=== PATIENT | male | born 1945 | race Caucasian/White ===

== ENCOUNTER 2017-07-23 18:18 | Emergency (ER) | payer OTHER, MEDICARE ==
[2017-07-23 19:03] VITALS: BP 0/0
--- NOTE | 2017-07-23 19:24 | UC ---
Shortness of Breath HPI - HPI Summary HPI Summary: 71 yo WM h/o hypothyroidism c/o increased cough with sputum and general unwellness x 3 days. Denies f/c or SOB currently but nurse reported O2 sat of 89 % in triage - History of Current Complaint Chief Complaint: UCGeneralIllness Stated Complaint: SORE THROAT Hx Obtained From: Patient Onset/Duration: Lasting Days Current Severity: Moderate Alleviating Factors: Nothing Associated Signs & Symptoms: Positive: Cough (Productive) - Allergy/Home Medications Allergies/Adverse Reactions: Allergies Allergy/AdvReac Type Severity Reaction Status Date / Time hydroxyurea Allergy See Comment Verified 07/23/17 18:44 MS Hydroxyurea [From Hydrea] Allergy See Comment Verified 07/23/17 18:44 Home Medications: Home Medications DOXYcycline CAP(*) [DOXYcycline 100MG CAP(*)] 100 mg PO BID 07/23/17 [History Confirmed 07/23/17] Omeprazole CAP* [Prilosec CAP* 20 MG] 20 mg PO DAILY 07/23/17 [History Confirmed 07/23/17] Pseudoephedrine HCL ER TAB* [Sudafed 12 Hour*] 120 mg PO BID 07/23/17 [History Confirmed 07/23/17] PMH/Surg Hx/FS Hx/Imm Hx Other History Of: Hepatitis C - Surgical History Surgical History: Yes Surgery Procedure, Year, and Place: R knee x 3. hernia repairs x 3. sinus x2. THYROIDECTOMY - Family History Known Family History: Positive: Cardiac Disease, Hypertension - Social History Alcohol Use: Occasionally Substance Use Type: None Smoking Status (MU): Never Smoked Tobacco Have You Smoked in the Last Year: No - Immunization History Most Recent Influenza Vaccination: FALL 2013 Most Recent Tetanus Shot: current Most Recent Pneumonia Vaccination: current Review of Systems Skin: Negative Eyes: Negative ENT: Negative Respiratory: Cough - with yellow green sputum Cardiovascular: Negative Gastrointestinal: Negative Genitourinary: Negative Motor: Negative Neurovascular: Negative Musculoskeletal: Negative Neurological: Negative Psychological: Negative All Other Systems Reviewed And Are Negative: Yes Physical Exam Triage Information Reviewed: Yes Appearance: Ill-Appearing Vital Signs: Initial Vital Signs Temp 37.4 C 07/23/17 18:48 Pulse 67 07/23/17 18:48 Resp 22 07/23/17 18:48 BP 136/91 07/23/17 18:48 Pulse Ox 89 07/23/17 18:48 Eye Exam: Normal ENT Exam: Normal Dental Exam: Normal Neck exam: Normal Neck: Positive: 1 Respiratory: Positive: Rhonchi - diffuse- O2 sat goes up increases with deep inspiration. Negative: No respiratory distress, No accessory muscle use, Stridor, Wheezing Cardiovascular Exam: Normal Cardiovascular: Positive: RRR Abdominal Exam: Normal Musculoskeletal Exam: Normal Neurological Exam: Normal Psychological Exam: Normal Skin Exam: Normal Shortness of Breath Dx - Course Course Of Treatment: Pt's O2 sat improves with deep inspiration, Pt sent to ED to w/u for PNA and monitor for hypoxia, IV abx if necessary. Refused ambulance, his to drive pt to ED - Differential Dx/Diagnosis Provider Diagnoses: hypoxia. bronchitis Discharge - Discharge Plan Condition: Stable Disposition: TRANS HIGHER LVL OF CARE FAC Patient Education Materials: Hypoxia (ED), Pneumonia (ED) Referrals: Olivier Garcia MD [Primary Care Provider] - Additional Instructions: Please go to ER [facility]
== END 2017-07-23 19:27 | disposition short-term general hospital (02) ==
LOC: UCEAST 18:18
DX: J40 Bronchitis, not specified as acute or chronic (principal); R09.02 Hypoxemia; Z86.19 Personal history of other infectious and parasitic diseases; Z88.8 Allergy status to other drugs, medicaments and biological substances
CPT/HCPCS: 99212; G0463

== ENCOUNTER 2017-07-23 19:36 | Emergency (ER) | payer MEDICARE, OTHER ==
[2017-07-23] MEDS ORDERED: Ketorolac INJ* 15 MG/ML 1 ML VIAL IV PUSH ONE (20:29)
[2017-07-23] MEDS ORDERED: Albuterol 2.5 MG/3 ML NEB.SOL* (0.083%) INH ONE (20:30)
[2017-07-23] MEDS ORDERED: Albuterol/Ipratropium NEB.SOL* Albuterol 2.5 MG/Ipratropium 0.5 MG 3 ML INH ONE (20:30)
[2017-07-23] MEDS ORDERED: NS 0.9% 1000 ML* 1,000 ML IV ONE (20:31)
--- NOTE | 2017-07-23 21:11 | RAD ---
HISTORY: Cough COMPARISONS: December 22, 2014 VIEWS: 1: frontal portable view of the chest at 9:05 PM FINDINGS: LINES AND TUBES: None. CARDIOMEDIASTINAL SILHOUETTE: The cardiomediastinal silhouette is normal for portable technique. PLEURA: The costophrenic angles are sharp. No pleural abnormalities are noted. LUNG PARENCHYMA: There is patchy alveolar opacification of the left lung base. ABDOMEN: The upper abdomen is clear. There is no subphrenic gas. BONES AND SOFT TISSUES: No bone or soft tissue abnormalities are noted. IMPRESSION: PATCHY LEFT BASILAR ATELECTASIS VERSUS CONSOLIDATION.
[2017-07-23 21:12] LABS: INR 1.16 (0.77-1.02)
[2017-07-23] MEDS ORDERED: Levofloxacin 750 MG IVPREMIX(* 750 MG/150 ML BAG IVPB ONE (21:15)
[2017-07-23 21:19] LABS: Hematocrit 40 % (42-52); Hemoglobin 13.4 g/dl (14.0-18.0); Mean Corpuscular HGB Conc 33 g/dl (31-36); Mean Corpuscular Hemoglobin 27 pg (27-31); Mean Corpuscular Volume 80 fL (80-94); Mean Platelet Volume 8 um3 (7.4-10.4); Platelet Count 502 10^3/ul (150-450); Red Blood Count 4.99 10^6/ul (4.0-5.4); Red Cell Distribution Width 17 % (10.5-15); White Blood Count 7.5 10^3/ul (3.5-10.8)
[2017-07-23 21:21] LABS: EGFR Non-African American 73.2 (>60)
[2017-07-23 21:40] LABS: ABS Basophils 0.1 10^3/ul (0-0.2); ABS Eosinophils 0.1 10^3/ul (0-0.6); ABS Lymphocytes 2.7 10^3/ul (1.0-4.8); ABS Monocytes 0.4 10^3/ul (0-0.8); ABS Neutrophils 4.1 10^3/ul (1.5-7.7); ABS Nucleated RBC 0.1 10^3/ul; Eosinophil % 1.6 % (0-6); Lymphocyte % 36.4 % (25-47); Nucleated Red Blood Cells % 0.8
--- NOTE | 2017-07-23 22:27 | ED ---
Juana Cerna Julia, scribed for Francisco Shanks MD on 07/23/17 at 203 . HPI Chest Pain - HPI Summary HPI Summary: This patient is a 71 year old M presenting to [facility] with a chief complaint of chest wall pain with cough for the past two days. Patient reports fatigue, sinus headache, and productive cough with yellow phlegm for the past four days. Patient denies SOB. The patient rates the pain 5/10 in severity. Patient has a chronic history of sinusitis, and has been taking Doxycycline for the past four days. Dr. Garcia is his primary care physician - History of Current Complaint Chief Complaint: EDChestWallPain Time Seen by Provider: 07/23/17 20:21 Hx Obtained From: Patient Onset/Duration: Started Days Ago Timing: Constant Pain Intensity: 5 Pain Scale Used: 0-10 Numeric Chest Pain Location: Diffuse Character: Cough, Productive Aggravating Factor(s): Other: - cough Associated Signs and Symptoms: Positive: Productive Cough, Sinus Discomfrot, Other: - fatigue. Negative: Shortness of Breath - Allergy/Home Medications Allergies/Adverse Reactions: Allergies Allergy/AdvReac Type Severity Reaction Status Date / Time hydroxyurea Allergy See Comment Verified 07/23/17 18:44 MS Hydroxyurea [From Hydrea] Allergy See Comment Verified 07/23/17 18:44 PMH/Surg Hx/FS Hx/Imm Hx Endocrine/Hematology History: Reports: Hx Blood Disorders - high platelets, Hx Thyroid Disease - THYROIDECTOMY MAY 2013 Denies: Hx Diabetes Cardiovascular History: Reports: Hx Hypercholesterolemia - borderline Respiratory History: Reports: Hx Asthma - hypo, Other Respiratory Problems/ Disorders - sinusitis Denies: Hx Chronic Obstructive Pulmonary Disease (COPD) GI History: Reports: Hx Gastroesophageal Reflux Disease Sensory History: Reports: Hx Contacts or Glasses Opthamlomology History: Reports: Hx Contacts or Glasses - Cancer History Cancer Type, Location and Year: thyroid CA - Surgical History Surgery Procedure, Year, and Place: R knee x 3. hernia repairs x 3. sinus x2. THYROIDECTOMY Hx Anesthesia Reactions: No - Immunization History Date of Tetanus Vaccine: 2013 Date of Influenza Vaccine: Fall 2013 Infectious Disease History: Yes Infectious Disease History: Reports: Hx Hepatitis - 1955 hep C, Hx Shingles Denies: Hx Clostridium Difficile, Hx Human Immunodeficiency Virus (HIV), Hx of Known/Suspected MRSA, Hx Tuberculosis, Hx Known/Suspected VRE, Hx Known/ Suspected VRSA, History Other Infectious Disease, Traveled Outside the [place] in Last 30 Days - Family History Known Family History: Positive: Cardiac Disease, Hypertension - Social History Alcohol Use: Occasionally Substance Use Type: Reports: None Smoking Status (MU): Never Smoked Tobacco Have You Smoked in the Last Year: No Review of Systems Positive: Fatigue Positive: Chest Pain Positive: Cough - productive. Negative: Shortness Of Breath Positive: Headache - sinus headache All Other Systems Reviewed And Are Negative: Yes Physical Exam - Summary Physical Exam Summary: VITAL SIGNS: Reviewed. GENERAL: Patient is a well-developed and nourished male who is lying comfortable in the stretcher. Patient is not in any acute respiratory distress. HEAD AND FACE: No signs of trauma. No ecchymosis, hematomas or skull depressions. No sinus tenderness. EYES: PERRLA, EOMI x 2, No injected conjunctiva, no nystagmus. EARS: Hearing grossly intact. Ear canals and tympanic membranes are within normal limits. MOUTH: Oropharynx within normal limits. NECK: Supple, trachea is midline, no adenopathy, no JVD, no carotid bruit, no c- spine tenderness, neck with full ROM. CHEST: Symmetric, no tenderness at palpation LUNGS: Clear to auscultation bilaterally. No wheezing or crackles. Decreased breath sounds bilaterally. CVS: Regular rate and rhythm, S1 and S2 present, no murmurs or gallops appreciated. ABDOMEN: Soft, non-tender. No signs of distention. No rebound no guarding, and no masses palpated. Bowel sounds are normal. EXTREMITIES: FROM in all major joints, no edema, no cyanosis or clubbing. NEURO: Alert and oriented x 3. No acute neurological deficits. Speech is normal and follows commands. SKIN: Dry and warm Triage Information Reviewed: Yes Vital Signs On Initial Exam: Initial Vitals Temp Pulse Resp BP Pulse Ox 99.1 F 72 20 158/66 94 07/23/17 19:38 07/23/17 19:38 07/23/17 19:38 07/23/17 19:38 07/23/17 19:38 Vital Signs Reviewed: Yes Diagnostics - Vital Signs Vital Signs Temp Pulse Resp BP Pulse Ox 07/23/17 20:07 66 144/75 96 07/23/17 20:04 68 93 07/23/17 19:38 99.1 F 72 20 158/66 94 - Laboratory Result Diagrams: 07/23/17 20:55 07/23/17 20:55 Lab Statement: Any lab studies that have been ordered have been reviewed, and results considered in the medical decision making process. - Radiology CXR Radiology Interpretation Completed By: Radiologist - PATCHY LEFT BASILAR ATELECTASIS VERSUS CONSOLIDATION. ED Physician has reviewed this report. - EKG 2045 Cardiac Rate: NL - at66 BPM EKG Rhythm: Sinus Rhythm EKG Interpretation: Normal axis. Normal interval. No ischemic changes Re-Evaluation - Re-Evaluation 1 Re-Evaluation Time: 22:20 Change: Improved - Patient is feeling better. Chest Pain Course/Dx - Course Course Of Treatment: Patient presents with chest wall pain with cough for the past two days. Patient reports fatigue, sinus headache, and productive cough with yellow phlegm for the past four days. Patient denies SOB. An EKG is of no acute concern. A CXR is indicative of PNA. Lab results are unremarkable. Patient is given a Albuterol via nebulizer treatment, Toradol, Levaquin, and IV fluids. Patient is feeling better at 22:20. Patient will be discharged with prescription for PO antibiotics. - Diagnoses Provider Diagnoses: PNA (pneumonia) Discharge - Discharge Plan Condition: Stable Disposition: HOME Patient Education Materials: Bacterial Pneumonia (ED) Referrals: Olivier Garcia MD [Primary Care Provider] - If Needed Additional Instructions: A prescription for antibiotics is provided. RETURN TO THE EMERGENCY DEPARTMENT FOR CHANGING OR WORSENING SYMPTOMS. The documentation as recorded by the Juana carrasquillo Julia accurately reflects the service I personally performed and the decisions made by Dimitris paz Abdul, MD.
[2017-07-23 22:48] VITALS: BP 137/60
== END 2017-07-23 22:58 | disposition home or self-care (01) ==
LOC: ED 19:36
DX: J18.9 Pneumonia, unspecified organism (principal); R07.89 Other chest pain; E78.00 Pure hypercholesterolemia, unspecified; J45.909 Unspecified asthma, uncomplicated; Z88.8 Allergy status to other drugs, medicaments and biological substances
CPT/HCPCS: 36415; 71045; 80053; 84484; 85025; 85610; 85730; 86140; 87040; 87502; 93005; 94640; 96365; 96375; 99283; A9270-GY; J1885

== ENCOUNTER 2017-11-11 19:57 | Emergency (ER) | payer MEDICARE, OTHER ==
[2017-11-11 20:31] VITALS: BP 154/58
--- NOTE | 2017-11-11 21:19 | UC ---
Throat Pain/Nasal Paulo HPI - HPI Summary HPI Summary: C/O frontal sinus pain x 3 days, getting worse. Worse with coughing. Slight sore throat. - History of Current Complaint Chief Complaint: UCRespiratory Stated Complaint: SINUS COMPLAINT Time Seen by Provider: 11/11/17 21:11 Hx Obtained From: Patient Onset/Duration: Gradual Onset, Lasting Days - 3, Worse Since - onset Severity: Mild Pain Intensity: 1 Cough: Productive - rarely Associated Signs & Symptoms: Positive: Sinus Discomfort, Nasal Discharge Related History: Seasonal Allergies - Allergies/Home Medications Allergies/Adverse Reactions: Allergies Allergy/AdvReac Type Severity Reaction Status Date / Time hydroxyurea Allergy See Comment Verified 07/23/17 18:44 Home Medications: Home Medications Aspirin [Aspir-Low] 81 mg PO SEE INSTRUCTIONS 11/11/17 [History Confirmed ] PMH/Surg Hx/FS Hx/Imm Hx Endocrine History: Hypothyroidism Other Cancer History: Thyroid Other History Of: Hepatitis C - Surgical History Surgical History: Yes Surgery Procedure, Year, and Place: R knee x 3. hernia repairs x 3. sinus x2. THYROIDECTOMY - Family History Known Family History: Positive: Cardiac Disease, Diabetes Negative: Hypertension - Social History Occupation: Retired Lives: With Family Alcohol Use: Occasionally Substance Use Type: None Smoking Status (MU): Never Smoked Tobacco Have You Smoked in the Last Year: No - Immunization History Most Recent Influenza Vaccination: FALL 2013 Most Recent Tetanus Shot: current Most Recent Pneumonia Vaccination: current Review of Systems ENT: Sore Throat, Sinus Congestion Respiratory: Cough Is Patient Immunocompromised?: No All Other Systems Reviewed And Are Negative: Yes Physical Exam Triage Information Reviewed: Yes Appearance: No Pain Distress, Well-Nourished, Ill-Appearing Vital Signs: Initial Vital Signs Temp 99.1 F 11/11/17 20:24 Pulse 68 11/11/17 20:24 Resp 24 11/11/17 20:24 BP 154/58 11/11/17 20:24 Pulse Ox 98 11/11/17 20:24 Vital Signs Reviewed: Yes Eyes: Positive: Conjunctiva Inflamed ENT: Positive: Nasal congestion, TMs normal Dental Exam: Normal Neck exam: Normal Respiratory Exam: Normal Cardiovascular: Positive: RRR, Murmur:Sys:Grade _?_/ - 2/6 Musculoskeletal Exam: Normal Neurological Exam: Normal Psychological Exam: Normal Skin Exam: Normal Throat Pain/Nasal Course/Dx - Differential Dx/Diagnosis Differential Diagnosis/HQI/PQRI: Otitis Media, Sinusitis, URI Provider Diagnoses: Acute URI. Acute sinusitis Discharge - Sign-Out/Discharge Documenting (check all that apply): Discharge/Admit/Transfer - Discharge Plan Condition: Stable Disposition: HOME Prescriptions: Amoxicillin PO (*) [Amoxicillin 875 MG (*)] 875 mg PO BID #20 tab Patient Education Materials: Upper Respiratory Infection (ED), Sinusitis (ED), Amoxicillin (By mouth) Referrals: Olivier Garcia MD [Primary Care Provider] - - Billing Disposition and Condition Condition: STABLE Disposition: Home
[2017-11-11] MEDS ORDERED: Amoxicillin PO (*) 500 MG CAP PO ONE (21:20)
== END 2017-11-11 21:33 | disposition home or self-care (01) ==
LOC: UCCORT 19:57
DX: J06.9 Acute upper respiratory infection, unspecified (principal); J01.90 Acute sinusitis, unspecified; Z88.8 Allergy status to other drugs, medicaments and biological substances
CPT/HCPCS: 99212; A9270-GY; G0463

== ENCOUNTER 2018-02-09 19:11 | Emergency (ER) | payer MEDICARE ==
[2018-02-09 19:35] VITALS: BP 149/61
[2018-02-09] MEDS ORDERED: Amoxicillin PO (*) 250 MG CAP PO ONE (19:41)
[2018-02-09] MEDS ORDERED: Amoxicillin PO (*) 500 MG CAP PO ONE (19:41)
--- NOTE | 2018-02-09 19:47 | UC ---
Respiratory Complaint HPI - HPI Summary HPI Summary: The patient is a 72-year-old male with chronic sinus issues. He uses Flonase daily. He states that over the past 3 days his chronic sinus congestion has markedly worsened. He has a cough from postnasal drip. He denies any fever or chills. He has no chest pain or shortness of breath. He has a history of a nasal fracture. He has history of sinus surgery. - History of Current Complaint Chief Complaint: UCGeneralIllness Stated Complaint: SINUS PAIN,CONGESTION,ST Time Seen by Provider: 02/09/18 19:24 Hx Obtained From: Patient Onset/Duration: Gradual Onset, Lasting Days Timing: Constant Severity Initially: Mild Severity Currently: Moderate Pain Intensity: 1 Pain Scale Used: 0-10 Numeric Character: Cough: Nonproductive Aggravating Factors: Nothing Alleviating Factors: Nothing Associated Signs And Symptoms: Positive: URI, Nasal Congestion, Sinus Discomfort - Allergies/Home Medications Allergies/Adverse Reactions: Allergies Allergy/AdvReac Type Severity Reaction Status Date / Time hydroxyurea Allergy See Comment Verified 02/09/18 19:27 Home Medications: Home Medications Clopidogrel TAB* [Plavix TAB*] 75 mg PO DAILY 02/09/18 [History Confirmed ] PMH/Surg Hx/FS Hx/Imm Hx Previously Healthy: Yes Endocrine History: Dyslipidemia Cardiovascular History: Cardiac Disease, Hypertension Other History Of: Hepatitis C - Surgical History Surgical History: Yes Surgery Procedure, Year, and Place: total R knee placement 2011. hernia repairs x 3. sinus x2 - 2000. THYROIDECTOMY - Family History Known Family History: Positive: Cardiac Disease, Diabetes Negative: Hypertension - Social History Alcohol Use: None Substance Use Type: None Smoking Status (MU): Never Smoked Tobacco Have You Smoked in the Last Year: No - Immunization History Most Recent Influenza Vaccination: FALL 2013 Most Recent Tetanus Shot: current Most Recent Pneumonia Vaccination: current Review of Systems Constitutional: Negative Skin: Negative Eyes: Negative ENT: Nasal Discharge, Sinus Congestion, Sinus Pain/Tenderness Respiratory: Cough Cardiovascular: Negative Gastrointestinal: Negative Genitourinary: Negative Motor: Negative Neurovascular: Negative Musculoskeletal: Negative Neurological: Negative Psychological: Negative Is Patient Immunocompromised?: No All Other Systems Reviewed And Are Negative: Yes Physical Exam Triage Information Reviewed: Yes Appearance: Well-Appearing, No Pain Distress, Well-Nourished Vital Signs: Initial Vital Signs Temp 97.9 F 02/09/18 19:28 Pulse 63 02/09/18 19:28 Resp 18 02/09/18 19:28 BP 149/61 02/09/18 19:28 Pulse Ox 97 02/09/18 19:28 Vital Signs Reviewed: Yes Eyes: Positive: Conjunctiva Clear ENT: Positive: Hearing grossly normal, Pharyngeal erythema, Nasal congestion, Nasal drainage, Sinus tenderness, Uvula midline. Negative: Tonsillar swelling, Tonsillar exudate Neck: Positive: Supple, Nontender, No Lymphadenopathy Respiratory: Positive: Lungs clear, Normal breath sounds, No respiratory distress, No accessory muscle use Cardiovascular: Positive: RRR, No Murmur Musculoskeletal: Positive: ROM Intact, No Edema Neurological: Positive: Alert Skin Exam: Normal UC Diagnostic Evaluation - Laboratory O2 Sat by Pulse Oximetry: 97 - normal/not hypoxic Respiratory Course/Dx - Differential Dx/Diagnosis Provider Diagnoses: acute sinusitis Discharge - Sign-Out/Discharge Documenting (check all that apply): Patient Departure All imaging exams completed and their final reports reviewed: No Studies - Discharge Plan Condition: Stable Disposition: HOME Prescriptions: Amoxicillin PO (*) [Amoxicillin 875 MG (*)] 875 mg PO BID #20 tab Patient Education Materials: Sinusitis (ED) Referrals: Olivier Garcia MD [Primary Care Provider] - 4 Days (if not improved) - Billing Disposition and Condition Condition: STABLE Disposition: Home
== END 2018-02-09 20:00 | disposition home or self-care (01) ==
LOC: UCEAST 19:11
DX: J01.90 Acute sinusitis, unspecified (principal); Z79.01 Long term (current) use of anticoagulants; Z96.651 Presence of right artificial knee joint; Z88.8 Allergy status to other drugs, medicaments and biological substances
CPT/HCPCS: 99212; A9270-GY; G0463

== ENCOUNTER 2019-01-18 17:21 | Emergency (ER) | payer MEDICARE ==
[2019-01-18 17:36] VITALS: BP 180/70
--- NOTE | 2019-01-18 17:38 | UC ---
Skin Complaint HPI - HPI Summary HPI Summary: 73 yo male presents with right leg and foot swelling. He tells me that for a long time he has had right leg claudication that is worse with ambulation and being on his feet for extended periods of time. 1 week he had stents placed in his right leg in [place]. Yesterday developed swelling to the entire leg - today swelling worsened and he developed redness to his foot that is worse at the 1st great toe. He is able to ambulate, but has significant pain. He denies fever, chills, SOB, difficulty breathing, or chest pain. - History of Current Complaint Chief Complaint: UCLowerExtremity Time Seen by Provider: 01/18/19 17:38 Stated Complaint: R FOOT PAIN Hx Obtained From: Patient Onset/Duration: Sudden Onset Current Severity: Moderate Pain Intensity: 6 Pain Scale Used: 0-10 Numeric - Allergy/Home Medications Allergies/Adverse Reactions: Allergies Allergy/AdvReac Type Severity Reaction Status Date / Time hydroxyurea Allergy See Comment Verified 01/18/19 17:36 Home Medications: Home Medications Ruxolitinib (NF) [Jakafi (NF)] 20 mg PO BID 01/18/19 [History Confirmed 01/18/19 ] PMH/Surg Hx/FS Hx/Imm Hx - Additional Past Medical History Additional PMH: Non-hodgkin's Thrombocythemia Endocrine History: Hypothyroidism GI/ History: Gastroesophageal Reflux Other History Of: Hepatitis C - Surgical History Surgical History: Yes Surgery Procedure, Year, and Place: total R knee placement 2011. hernia repairs x 3. sinus x2 - 2000. THYROIDECTOMY. stents to right leg - Family History Known Family History: Positive: Cardiac Disease, Diabetes Negative: Hypertension - Social History Alcohol Use: None Substance Use Type: None Smoking Status (MU): Never Smoked Tobacco Have You Smoked in the Last Year: No - Immunization History Most Recent Influenza Vaccination: FALL 2013 Most Recent Tetanus Shot: current Most Recent Pneumonia Vaccination: current Review of Systems All Other Systems Reviewed And Are Negative: No Constitutional: Positive: Negative Skin: Positive: Other - Right 1st MTP redness Respiratory: Positive: Negative Cardiovascular: Positive: Negative Neurovascular: Positive: Negative Neurological: Positive: Negative Psychological: Positive: Negative Physical Exam - Summary Physical Exam Summary: GENERAL: NAD. WDWN. No pain distress. SKIN: RIGHT LOWER LEG: Moderate edema about entire lower leg into foot. Moderate erythema at 1st MTP with TTP. No open wounds. CHEST: No accessory muscle use. Breathing comfortably and in no distress. CV: Pulses intact popliteal, PT, and DP. Cap refill <2seconds MSK: RIGHT FOOT TTP 1st MTP. Painful ROM. Positive homans sign. NEURO: Alert. Sensations intact and symmetric B/L LEs PSYCH: Age appropriate behavior. Triage Information Reviewed: Yes Vital Signs: Initial Vital Signs Temp 98.2 F 01/18/19 17:24 Pulse 59 01/18/19 17:24 Resp 17 01/18/19 17:24 BP 180/70 01/18/19 17:24 Pulse Ox 100 01/18/19 17:24 Vital Signs Reviewed: Yes Course/Dx - Course Course Of Treatment: His exam seems most consistent with gout to the 1st MTP, but he states he has no history of this and has significant edema of the leg. Given his PMHx and recent surgery to the extremity, I am most concerned for a blood clot or underlying infection. I recommended that pt be further evaluated in the ED for labwork and likely ultrasound of the leg. Pt was agreeable to this. - Diagnoses Provider Diagnosis: Leg edema, right Discharge ED - Sign-Out/Discharge Documenting (check all that apply): Patient Departure All imaging exams completed and their final reports reviewed: No Studies - Discharge Plan Condition: Stable Disposition: HOME-RECOMMEND TO ED Referrals: Olivier Garcia MD [Primary Care Provider] - Additional Instructions: Please go to the ER for further evaluation of your right leg swelling after surgery - Billing Disposition and Condition Condition: STABLE Disposition: Home-Recommend to ED
== END 2019-01-18 18:02 | disposition home health service (06) ==
LOC: UCEAST 17:21
DX: R60.9 Edema, unspecified (principal); E03.9 Hypothyroidism, unspecified; K21.9 Gastro-esophageal reflux disease without esophagitis; B19.20 Unspecified viral hepatitis C without hepatic coma
CPT/HCPCS: 99212; G0463

== ENCOUNTER 2019-01-18 18:15 | Emergency (ER) | payer MEDICARE ==
--- NOTE | 2019-01-18 18:41 | ED ---
Lower Extremity - HPI Summary HPI Summary: This patient is a 73 year old male presenting to [facility] with a chief complaint of right lower extremity pain. The patient had vascular surgery in [place] next week and he states he stubbed his toe a couple days after. He denies fever, chest pain, SOB. He reports swelling in the RLE and states it is normally swollen since he had a knee replacement in that knee. He states it is likely swelled more than usual. Medications reviewed, allergies noted. Levothyroxine TAB* [Synthroid 125 MCG TAB*] 150 mcg PO DAILY 12/22/14 [History Confirmed 01/18/19] Omeprazole CAP (NF) [Prilosec CAP* 20 MG] 20 mg PO DAILY PRN 07/23/17 [History Confirmed 01/18/19] Clopidogrel TAB* [Plavix TAB*] 75 mg PO DAILY 02/09/18 [History Confirmed ] Allopurinol 300 mg PO DAILY 01/18/19 [History Confirmed 01/18/19] Aspirin 81 mg CHEW TAB* 81 mg PO DAILY 01/18/19 [History Confirmed 01/18/19] Ruxolitinib (NF) [Jakafi (NF)] 20 mg PO BID 01/18/19 [History Confirmed 01/18/19 ] - History of Current Complaint Chief Complaint: EDExtremityLower Stated Complaint: RT FOOT PAIN PER PT Time Seen by Provider: 01/18/19 18:34 Hx Obtained From: Patient Severity Initially: Moderate Severity Currently: Moderate Pain Intensity: 7 Pain Scale Used: 0-10 Numeric Associated Signs And Symptoms: Positive: Swelling, Redness - Allergies/Home Medications Allergies/Adverse Reactions: Allergies Allergy/AdvReac Type Severity Reaction Status Date / Time hydroxyurea Allergy See Comment Verified 01/18/19 18:44 Home Medications: Home Medications Allopurinol 300 mg PO DAILY 01/18/19 [History Confirmed 01/18/19] Aspirin 81 mg CHEW TAB* 81 mg PO DAILY 01/18/19 [History Confirmed 01/18/19] PMH/Surg Hx/FS Hx/Imm Hx Endocrine/Hematology History: Reports: Hx Blood Disorders - high platelets, Hx Thyroid Disease - THYROIDECTOMY MAY 2013 Denies: Hx Diabetes Cardiovascular History: Reports: Hx Hypercholesterolemia - borderline Respiratory History: Reports: Other Respiratory Problems/Disorders - sinusitis Denies: Hx Asthma, Hx Chronic Obstructive Pulmonary Disease (COPD) GI History: Reports: Hx Gastroesophageal Reflux Disease Sensory History: Reports: Hx Contacts or Glasses Opthamlomology History: Reports: Hx Contacts or Glasses - Cancer History Cancer Type, Location and Year: thyroid CA - Surgical History Surgery Procedure, Year, and Place: total R knee placement 2011. hernia repairs x 3. sinus x2 - 2000. THYROIDECTOMY. stents to right leg Hx Anesthesia Reactions: No - Immunization History Date of Tetanus Vaccine: 2013 Date of Influenza Vaccine: Fall 2013 Infectious Disease History: No Infectious Disease History: Reports: Hx Hepatitis - 1954 hep C, Hx Shingles Denies: Hx Clostridium Difficile, Hx Human Immunodeficiency Virus (HIV), Hx of Known/Suspected MRSA, Hx Tuberculosis, Hx Known/Suspected VRE, Hx Known/ Suspected VRSA, History Other Infectious Disease, Traveled Outside the [place] in Last 30 Days - Family History Known Family History: Positive: Cardiac Disease, Diabetes Negative: Hypertension - Social History Alcohol Use: None Substance Use Type: Reports: None Smoking Status (MU): Never Smoked Tobacco Have You Smoked in the Last Year: No Review of Systems Negative: Fever Negative: Chest Pain Negative: Shortness Of Breath Positive: Edema, Other - Right foot pain All Other Systems Reviewed And Are Negative: Yes Physical Exam - Summary Physical Exam Summary: Constitutional: Well-developed, Well-nourished, Alert. (-) Distressed Skin: Warm, Dry HENT: Normocephalic; Atraumatic Eyes: Conjunctiva normal Neck: Musculoskeletal ROM normal neck. (-) JVD, (-) Stridor, (-) Tracheal deviation Cardio: Rhythm regular, rate normal, Heart sounds normal; Intact distal pulses; The pedal pulses are 2+ and symmetric. Radial pulses are 2+ and symmetric. (-) Murmur Pulmonary/Chest wall: Effort normal. (-) Respiratory distress, (-) Wheezes, (-) Rales Abd: Soft, (-) tenderness, (-) Distension, (-) Guarding, (-) Rebound Musculoskeletal: (-) Edema. Right great toe erythemetous at the MTP joint. Patient can range his toe both active and passively. Slightly warm, slightly tender. Warmth in the foot and the leg. Right calf swollen compared to the left. DP/PT pulse 2+. Lymph: (-) Cervical adenopathy Neuro: Alert, Oriented x3 Psych: Mood and affect Normal Triage Information Reviewed: Yes Vital Signs On Initial Exam: Initial Vitals Temp Pulse Resp BP Pulse Ox 97.3 F 62 18 195/116 97 01/18/19 18:21 01/18/19 18:21 01/18/19 18:21 01/18/19 18:21 01/18/19 18:21 Vital Signs Reviewed: Yes Diagnostics - Vital Signs Vital Signs Temp Pulse Resp BP Pulse Ox 01/18/19 18:21 97.3 F 62 18 195/116 97 - Laboratory Result Diagrams: 01/18/19 18:49 01/18/19 18:53 Lab Statement: Any lab studies that have been ordered have been reviewed, and results considered in the medical decision making process. Re-Evaluation - Re-Evaluation First Eval Re-Evaluation Time: 20:28 Comment: He gets all of his care at [facility] in [place]. He is unsure what his normal blood counts are. He states he is comfortable getting discharged and following up at [place] to compare his blood counts. Lower Extremity Course/Dx - Course Course Of Treatment: Patient is here with right toe pain and right lower extremity swelling. Patient had a negative ultrasound for DVT in the right lower extremity. Patient's great toe appears to be affected with gout. Patient is able to range his toe and has minimal pain during that making septic arthritis unlikely. Patient has a good vascular exam in his foot and this does not represent arterial occlusion. Patient had blood performed which showed leukocytosis, thrombocytosis, blasto cytosis. Patient has a known blood disorder that is being treated in [place]. Patient is unsure what his typical lab results are. Patient was comfortable with being discharged with calling his primary physician tomorrow to attest that his lab results are not abnormal for him. Patient was encouraged to come back for any worsening symptoms. - Diagnoses Provider Diagnoses: Swelling of right lower extremity, Gout, Thrombocytosis, Leukocytosis, Anemia Discharge ED - Sign-Out/Discharge Documenting (check all that apply): Patient Departure - Discharge Patient Received Moderate/Deep Sedation with Procedure: No - Discharge Plan Condition: Stable Disposition: HOME Patient Education Materials: Gout (ED) Referrals: Olivier Garcia MD [Primary Care Provider] - Additional Instructions: Follow up at [facility]. Return to ED with any concerning symptoms. - Billing Disposition and Condition Condition: STABLE Disposition: Home - Attestation Statements Document Initiated by Scribe: Yes Documenting Scribe: Cheng Ayoub Provider For Whom Scribe is Documenting (Include Credential): Jamir Jean-Baptiste MD Scribe Attestation: ICheng, scribed for Jamir Jean-Baptiste MD on 01/18/19 at 2112. Scribe Documentation Reviewed: Yes Provider Attestation: The documentation as recorded by the Cheng carrasquillo accurately reflects the service I personally performed and the decisions made by me, Jamir Jean-Baptiste MD Status of Scribe Document: Viewed
[2019-01-18 19:06] LABS: Hematocrit 33 % (42-52); Hemoglobin 10.9 g/dL (14.0-18.0); Mean Corpuscular HGB Conc 33 g/dL (31-36); Mean Corpuscular Hemoglobin 26 pg (27-31); Mean Corpuscular Volume 79 fL (80-94); Platelet Count 942 10^3/uL (150-450); Red Blood Count 4.15 10^6 /uL (4.18-5.48); Red Cell Distribution Width 19 % (10-15); White Blood Count 23.2 10^3/uL (3.5-10.8)
[2019-01-18 19:22] LABS: Albumin/Globulin Ratio 1.7 (1-3); BUN/Creatinine Ratio 25.7 (8-20); Calcium 8.1 mg/dL (8.6-10.3); EGFR African American 77.4 (>60); Globulin 2.3 g/dL (2-4); Total Bilirubin 0.5 mg/dL (0.2-1.0); Total Protein 6.3 g/dL (6.4-8.9); Uric Acid 4.2 mg/dL (4.4-7.6)
[2019-01-18 19:29] LABS: Potassium 4.5 mmol/L (3.5-5.0)
[2019-01-18 19:42] LABS: Polychromasia 1+
[2019-01-18 19:43] LABS: Microcytosis 2+; Tear Drop Cells 1+
[2019-01-18 20:12] LABS: ABS Basophils 0.5 10^3/ul (0-0.2); ABS Eosinophils 0.5 10^3/ul (0-0.6)
[2019-01-18] MEDS ORDERED: Dexamethasone TAB* 4 MG PO ONE (20:33)
[2019-01-18 21:06] VITALS: BP 178/88
== END 2019-01-18 21:05 | disposition home or self-care (01) ==
LOC: ED 18:15
DX: M10.9 Gout, unspecified (principal); D47.3 Essential (hemorrhagic) thrombocythemia; D72.829 Elevated white blood cell count, unspecified; D64.9 Anemia, unspecified; E78.00 Pure hypercholesterolemia, unspecified; K21.9 Gastro-esophageal reflux disease without esophagitis; Z79.01 Long term (current) use of anticoagulants; Z79.82 Long term (current) use of aspirin; Z79.899 Other long term (current) drug therapy; Z88.8 Allergy status to other drugs, medicaments and biological substances
CPT/HCPCS: 36415; 80053; 84550; 85025; 85060; 99282; J8540

== ENCOUNTER 2019-01-20 08:21 | Emergency (ER) | payer MEDICARE ==
[2019-01-20 08:34] VITALS: BP 181/73
--- NOTE | 2019-01-20 08:44 | UC ---
Lower Extremity/Ankle HPI - HPI Summary HPI Summary: Patient is 73 year old male , who present today to the urgent care with right foot pain . He reports most of his pain is around the right big toe. He was seen in the ER on 01/18/19 and treated with dexamethasone for the diagnosis of gout. He reports that his symptoms got better the next day that was yesterday but last night it started to get painful and swollen again. In the ER Doppler ultrasound was done to rule out any DVT and it was negative. 's blood work demonstrated leukocytosis of 23.2, thrombocytosis and blastocytosis. He has history of blood disorder for which he gets his evaluation at [facility]. He got a vascular surgery with stent placement in the right lower extremity on last week and also reports 2 days later that he stubbed his toe and after which his symptoms started. He denies any fevers or chills and denies any other symptoms.. He has no prior history of gout He denies any chest pain or shortness of breath. He is not sure of his blood counts but tells me that they're always been deranged. He was recommended to follow with Julio, his primary care doctor the next day but it was closed so he presented here today. - History of Current Complaint Chief Complaint: UCLowerExtremity Stated Complaint: FOOT PAIN Time Seen by Provider: 01/20/19 08:24 Hx Obtained From: Patient Pain Intensity: 6 - Allergies/Home Medications Allergies/Adverse Reactions: Allergies Allergy/AdvReac Type Severity Reaction Status Date / Time hydroxyurea Allergy See Comment Verified 01/18/19 18:44 PMH/Surg Hx/FS Hx/Imm Hx - Additional Past Medical History Additional PMH: Past Medical History : Thyroid cancer, hepatitis C,lymphoma, polycythemia, mylofibrosis Past Surgical History: total R knee placement 2012 hernia repairs x 3 sinus x2 - 2000 THYROIDECTOMY stents to right leg Family History : non contributory Social History : Occasional alcohol, non smoker, no drug use. Lives with family . Previously Healthy: Yes Other History Of: Hepatitis C - Surgical History Surgical History: Yes Surgery Procedure, Year, and Place: total R knee placement 2011. hernia repairs x 3. sinus x2 - 2000. THYROIDECTOMY. stents to right leg - Family History Known Family History: Positive: Cardiac Disease, Diabetes, Non-Contributory Negative: Hypertension - Social History Alcohol Use: None Substance Use Type: None Smoking Status (MU): Never Smoked Tobacco Have You Smoked in the Last Year: No - Immunization History Most Recent Influenza Vaccination: FALL 2013 Most Recent Tetanus Shot: current Most Recent Pneumonia Vaccination: current Review of Systems All Other Systems Reviewed And Are Negative: Yes Constitutional: Positive: Negative Skin: Positive: Other - Swelling and bruising around the big toe Eyes: Positive: Negative ENT: Positive: Negative Respiratory: Positive: Negative Cardiovascular: Positive: Negative Gastrointestinal: Positive: Negative Genitourinary: Positive: Negative Motor: Positive: Negative Neurovascular: Positive: Negative Musculoskeletal: Positive: Arthralgia - Right big toe Neurological: Positive: Negative Psychological: Positive: Negative Is Patient Immunocompromised?: No Physical Exam - Summary Physical Exam Summary: Vital Signs Reviewed: Yes A+Ox3, no distress Eyes: Conjunctiva Clear ENT: Hearing grossly normal neck: supple Respiratory: Positive: No respiratory distress, No accessory muscle use Cardiovascular: skin color reflect adequate perfusion Neurological: Positive: Alert, ambulatory without difficulty Psychological: Positive: Normal Response To Family Skin: Positive: no rash, no ecchymosis Right Feet: Insp/Palp: There is swelling in the mid to distal swelling along with erythema and swelling of the right big toe. There is tenderness to palpation of the MCP joint of the right big toe along with painful range of motion. Strength: EHL 5/5 blaterally Skin: No scars, rashes, lesions or ecchymosis. 2+ posterior tibial and dorsalis pedis pulse bilaterally. Neuro: Sensation to light touch is intact in the lower extremities bilaterally. Coordination normal. Triage Information Reviewed: Yes Vital Signs: Initial Vital Signs Temp 97.3 F 01/20/19 08:27 Pulse 57 01/20/19 08:27 Resp 16 01/20/19 08:27 BP 181/73 01/20/19 08:27 Pulse Ox 98 01/20/19 08:27 Vital Signs Reviewed: Yes Diagnostics - Radiology No standard instances Radiology Interpretation Completed By: Radiologist - X-ray of the right foot: Normal radiograph of the right foot. If the patient's symptoms persist, follow- up imaging is recommended. Lower Extremity Course/Dx - Course Course Of Treatment: During the visit today, x-rays of the right foot: Negative for any fracture, arthritic changes of the IP joint and MCP joint of the big toe. final report: Normal radiograph of the right foot. If the patient's symptoms persist, follow- up imaging is recommended. we discussed the findings - possible gout and cellulitis. I will prescribe the medication to the pharmacy . We discussed that he has to strictly follow-up with his primary care doctor tomorrow. He will also call [facility] Brian and consult a surgeon tomorrow. Patient expressed understanding . - Differential Dx/Diagnosis Provider Diagnosis: Gout Discharge ED - Sign-Out/Discharge Documenting (check all that apply): Patient Departure All imaging exams completed and their final reports reviewed: Yes - Discharge Plan Condition: Stable Disposition: HOME Prescriptions: predniSONE [Prednisone 20 MG TAB] 60 mg PO DAILY 5 Days #15 tablet Sulfamethox/Trimethoprim DS* [Bactrim DS 800/160 TAB*] 1 tab PO BID 10 Days #20 tab Patient Education Materials: Cellulitis (ED), Gout (ED) Referrals: Olivier Garcia MD [Primary Care Provider] - 1 Day Additional Instructions: Please start taking the medication as prescribed to the pharmacy . follow-up with his primary care doctor tomorrow for recheck. Please call [facility] Brian and consult a surgeon tomorrow. Patients blood pressure slightly high in Urgent care today , plan follow up with PCP for better control Return to Urgent care / ER immediately if symptoms get worse. - Billing Disposition and Condition Condition: STABLE Disposition: Home
== END 2019-01-20 10:01 | disposition home or self-care (01) ==
LOC: UCEAST 08:21
DX: M79.674 Pain in right toe(s) (principal); M10.9 Gout, unspecified; B19.20 Unspecified viral hepatitis C without hepatic coma; Z85.850 Personal history of malignant neoplasm of thyroid; Z85.72 Personal history of non-Hodgkin lymphomas
CPT/HCPCS: 99212; G0463

== ENCOUNTER 2019-01-27 06:17 | Emergency (ER) | payer MEDICARE ==
[2019-01-27 06:22] VITALS: BP 147/74
[2019-01-27] MEDS ORDERED: Colchicine* 0.6 MG TAB PO SCH (07:18)
--- NOTE | 2019-01-27 07:39 | ED ---
Lower Extremity - HPI Summary HPI Summary: This patient is a 73-year-old male with a recent history of vascular surgery several weeks ago presenting to the ED with right swollen toe. He states he stubbed his toe a couple days after his vascular surgery, however he has not had pain until 10 days ago. He was seen in the ED and treated for gout. He states immediately following the steroid, his symptoms began to improve. He was not however placed on other medications at the time. He states he is on no maintenance medication for gout, however medication history shows he is currently on allopurinol. He has also recently started clopidogrel due to his vascular surgery. He states he is otherwise healthy and denies any cardiac history. He denies any history of DVT or PE. Ultrasound of the lower extremity was completed 10 days ago and was negative for DVT. He states the pain to his toe is greatest at the base of the toe with radiation distally. Denies any pain to the foot. He does endorse erythema as well. Worse with positioning, not much better with rest. He has not taken anything over-the- counter for relief. - History of Current Complaint Chief Complaint: EDExtremityLower Stated Complaint: GOUT PER PT Time Seen by Provider: 01/27/19 06:25 Hx Obtained From: Patient Onset of Pain: Minutes Onset/Duration: Minutes Severity Initially: Severe Severity Currently: Severe Pain Intensity: 6 Pain Scale Used: 0-10 Numeric Timing: Constant Location: Is Discrete @ - R base of the great toe Character Of Pain: Aching Associated Signs And Symptoms: Positive: Redness Aggravating Factor(s): Standing, Ambulation Alleviating Factor(s): Rest Able to Bear Weight: Yes - Risk Factors Gout Risk Factors: Age Over 40, Male, Hyperlipidemia, Peripherial Vascular Disease - Allergies/Home Medications Allergies/Adverse Reactions: Allergies Allergy/AdvReac Type Severity Reaction Status Date / Time hydroxyurea Allergy See Comment Verified 01/27/19 06:30 PMH/Surg Hx/FS Hx/Imm Hx Previously Healthy: Yes Endocrine/Hematology History: Reports: Hx Blood Disorders - high platelets, Hx Thyroid Disease - THYROIDECTOMY MAY 2013 Denies: Hx Diabetes Cardiovascular History: Reports: Hx Hypercholesterolemia - borderline Respiratory History: Reports: Other Respiratory Problems/Disorders - sinusitis Denies: Hx Asthma, Hx Chronic Obstructive Pulmonary Disease (COPD) GI History: Reports: Hx Gastroesophageal Reflux Disease Sensory History: Reports: Hx Contacts or Glasses Opthamlomology History: Reports: Hx Contacts or Glasses - Cancer History Cancer Type, Location and Year: thyroid CA - Surgical History Surgery Procedure, Year, and Place: total R knee placement 2011. hernia repairs x 3. sinus x2 - 1999. THYROIDECTOMY. stents to right leg Hx Anesthesia Reactions: No - Immunization History Date of Tetanus Vaccine: 2013 Date of Influenza Vaccine: Fall 2013 Hx Pertussis Vaccination: No Immunizations Up to Date: Yes Infectious Disease History: No Infectious Disease History: Reports: Hx Hepatitis - 5 hep C, Hx Shingles Denies: Hx Clostridium Difficile, Hx Human Immunodeficiency Virus (HIV), Hx of Known/Suspected MRSA, Hx Tuberculosis, Hx Known/Suspected VRE, Hx Known/ Suspected VRSA, History Other Infectious Disease, Traveled Outside the [place] in Last 30 Days - Family History Known Family History: Positive: Cardiac Disease, Diabetes, Non-Contributory Negative: Hypertension - Social History Occupation: Unemployed, Retired Lives: With Family Alcohol Use: None Hx Substance Use: No Substance Use Type: Reports: None Smoking Status (MU): Never Smoked Tobacco Have You Smoked in the Last Year: No Review of Systems Negative: Fever, Chills, Fatigue, Skin Diaphoresis Negative: Palpitations, Chest Pain Negative: Shortness Of Breath, Cough Genitourinary: Negative Positive: no symptoms reported, see HPI Positive: Arthralgia - R base of the great toe. Negative: Myalgia Positive: Other - erythema Neurological: Negative All Other Systems Reviewed And Are Negative: Yes Physical Exam Triage Information Reviewed: Yes Vital Signs On Initial Exam: Initial Vitals Temp Pulse Resp BP Pulse Ox 97.9 F 66 18 147/74 96 01/27/19 06:18 01/27/19 06:18 01/27/19 06:18 01/27/19 06:18 01/27/19 06:18 Vital Signs Reviewed: Yes Appearance: Positive: Well-Appearing, Well-Nourished Skin: Positive: Warm, Skin Color Reflects Adequate Perfusion, Other - R base of the great toe Head/Face: Positive: Normal Head/Face Inspection Eyes: Positive: EOMI, TRAE, Conjunctiva Clear Neck: Positive: Supple, No Lymphadenopathy Respiratory/Lung Sounds: Positive: Clear to Auscultation, Breath Sounds Present Cardiovascular: Positive: RRR, Pulses are Symmetrical in both Upper and Lower Extremities Musculoskeletal: Positive: Normal, Strength/ROM Intact Neurological: Positive: Speech Normal Psychiatric: Positive: Affect/Mood Appropriate Diagnostics - Vital Signs Vital Signs Temp Pulse Resp BP Pulse Ox 01/27/19 06:18 97.9 F 66 18 147/74 96 - Laboratory Lab Statement: Any lab studies that have been ordered have been reviewed, and results considered in the medical decision making process. Lower Extremity Course/Dx - Course Course Of Treatment: During his course treatment, the patient is evaluated for acute gout flare up. Patient states he is having pain at the base of the first metatarsal with erythema. Pain is currently rated an 8/10. He was given dexamethasone in the ED 10 days ago when being seen for same pain and he states this improved his symptoms within a few hours. He did not take any NSAIDs or other [id number] medications at that time. He denies being on any medication for maintenance for gout, however his medication lists allopurinol. Discussed treatment options with the patient. As patient is currently on Plavix , we will avoid NSAID/indomethacin use. He is given colchicine 1.2 mg in the ED and 0.6 mg for at home, only to be used until symptoms resolve. He is given information on colchicine and is instructed to discontinue use if diarrhea or other symptoms of toxicity develop. He is also placed on prednisone once daily 5 days. He will follow-up with his PCP. - Diagnoses Differential Diagnosis/HQI/PQRI: Positive: Fracture (Closed), Gout, Infection, Osteomyelitis, Sprain, Strain Provider Diagnoses: Gout attack Discharge ED - Sign-Out/Discharge Documenting (check all that apply): Patient Departure Patient Received Moderate/Deep Sedation with Procedure: No - Discharge Plan Condition: Stable Disposition: HOME Prescriptions: Colchicine* [Colcrys*] 0.6 mg PO DAILY #10 tab MDD 1 predniSONE TAB* [Deltasone TAB*] 50 mg PO DAILY #5 tab Patient Education Materials: Colchicine (By mouth), Low Purine Diet (ED), Gout (ED) Referrals: Olivier Garcia MD [Primary Care Provider] - Additional Instructions: Colchicine 1 tab daily until symptoms resolve. If you develop any diarrhea symptoms, discontinue use. Do not exceed 1 tab per day Only take until symptoms resolve Prednisone once daily x 5 days - start this medication today - Billing Disposition and Condition Condition: STABLE Disposition: Home
== END 2019-01-27 07:52 | disposition home or self-care (01) ==
LOC: ED 06:17
DX: M10.9 Gout, unspecified (principal); E78.00 Pure hypercholesterolemia, unspecified; K21.9 Gastro-esophageal reflux disease without esophagitis; Z85.850 Personal history of malignant neoplasm of thyroid; Z96.651 Presence of right artificial knee joint; Z79.899 Other long term (current) drug therapy; Z88.8 Allergy status to other drugs, medicaments and biological substances
CPT/HCPCS: 99282

== ENCOUNTER 2022-06-13 10:56 | Observation (INO) ==
[2022-06-13 14:10] LABS: Hematocrit 27 % (42-52); Mean Corpuscular HGB Conc 34 g/dL (31-36); Mean Corpuscular Hemoglobin 30 pg (27-31); Mean Corpuscular Volume 89 fL (80-94); Red Blood Count 2.98 10^6 /uL (4.18-5.48); Red Cell Distribution Width 19 % (10-15); White Blood Count 3.9 10^3/uL (3.5-10.8)
[2022-06-13 14:30] LABS: INR 1.16 (0.88-1.18)
[2022-06-13 14:37] LABS: Albumin 3.4 g/dL (3.2-5.2); Albumin/Globulin Ratio 1.5 (1-3); Calcium 6.9 mg/dL (8.6-10.3); Creatinine, Serum 1.39 mg/dL (0.67-1.17); Globulin 2.2 g/dL (2-4); Total Bilirubin 0.4 mg/dL (0.2-1.0); Total Protein 5.6 g/dL (6.4-8.9); eGFR CKD-EPI 53.2 (>60)
[2022-06-13 14:39] LABS: C Reactive Protein 66.45 mg/L (<8.01)
[2022-06-13 15:04] LABS: Potassium 3.8 mmol/L (3.5-5.0)
[2022-06-13 15:17] LABS: High Sensitivity Troponin 1 Hr 37 pg/mL (<20)
[2022-06-13 15:59] LABS: ABS Lymphocytes 0.5 10^3/ul (1.0-4.8); ABS Monocytes 0.5 10^3/ul (0-0.8); ABS Neutrophils 2.9 10^3/ul (1.5-7.7); Eosinophil % 1.2 %; Lymphocyte % 11.8 %; Mean Platelet Volume 7.5 fL (7.4-10.4); Nucleated Red Blood Cells % 0.1; Platelet Count 96 10^3/uL (150-450)
[2022-06-13] MEDS: Enoxaparin 40 MG/0.4 ML SYR SUBCUT SCH (17:13)
[2022-06-13] MEDS ORDERED: Fluticasone NASAL SPRAY 50MCG 16 gm SPRAY BTL INTRANASAL PRN (17:24)
[2022-06-13 18:22] LABS: % Iron Saturation 32 % (15-55); Iron 82 ug/dL (50-212); Total Iron Binding Capacity 253 mcg/dL (250-450); Transferrin 181 mg/dL (203-362); Unsaturated Iron Binding 171 ug/dL
[2022-06-13] MEDS ORDERED: Dextrose 50% Syringe 50 ml 25 GM/50 ML SYRINGE IV PUSH PRN (18:37)
[2022-06-13] MEDS: Albuterol/Ipratropium NEB.SOL (2.5/0.5 MG) 3 ML NEB.SOLN INH SCH (20:29)
[2022-06-13] MEDS: Budesonide NEB 0.5 MG/2 ML NEB.SOLN INH SCH (20:29)
[2022-06-13] MEDS: Ruxolitinib (NF) 5 MG TABLET PO SCH (21:27)
[2022-06-14 06:45] LABS: ABS Lymphocytes 0.5 10^3/ul (1.0-4.8); ABS Monocytes 0.5 10^3/ul (0-0.8); ABS Neutrophils 2.3 10^3/ul (1.5-7.7); Eosinophil % 1.5 %; Hematocrit 27 % (42-52); Hemoglobin 9.3 g/dL (14.0-18.0); Lymphocyte % 14.7 %; Mean Corpuscular HGB Conc 34 g/dL (31-36); Mean Corpuscular Hemoglobin 31 pg (27-31); Mean Corpuscular Volume 89 fL (80-94); Mean Platelet Volume 7.5 fL (7.4-10.4); Nucleated Red Blood Cells % 0.1; Platelet Count 114 10^3/uL (150-450); Red Blood Count 3.03 10^6 /uL (4.18-5.48); Red Cell Distribution Width 19 % (10-15); White Blood Count 3.4 10^3/uL (3.5-10.8)
[2022-06-14 06:54] LABS: Calcium 6.9 mg/dL (8.6-10.3); Creatinine, Serum 1.47 mg/dL (0.67-1.17); Magnesium 2.3 mg/dL (1.9-2.7); Potassium 3.6 mmol/L (3.5-5.0); eGFR CKD-EPI 49.7 (>60)
[2022-06-14] MEDS: Albuterol/Ipratropium NEB.SOL (2.5/0.5 MG) 3 ML NEB.SOLN INH SCH ×2 (06:59→19:15)
[2022-06-14] MEDS: Budesonide NEB 0.5 MG/2 ML NEB.SOLN INH SCH ×2 (06:59→19:15)
[2022-06-14] MEDS: Isosorbide Mononit ER 30mg TAB PO SCH (07:48)
[2022-06-14] MEDS: DULoxetine DR 30 mg CAP PO SCH (07:49)
[2022-06-14] MEDS: ISAVUCONAZONIUM SULFATE 186 MG PO SCH (07:53)
[2022-06-14] MEDS: Ruxolitinib (NF) 5 MG TABLET PO SCH ×2 (07:53→20:06)
[2022-06-14 10:04] LABS: Total Protein 5.4 g/dL (6.4-8.9)
[2022-06-14 12:39] LABS: Body Fluid WBC 290 /mcL
[2022-06-14 14:41] LABS: Body Fluid Source Pleural Fluid
[2022-06-14 14:42] LABS: Body Fluid Appearance Bloody; Body Fluid Color Red
[2022-06-14 14:49] LABS: Body Fluid Band 0 %; Body Fluid Mono 11 %; Body Fluid NRBC 2; Body Fluid Other Cells 1; Body Fluid Total Cells Counted 200
[2022-06-14] MEDS: Enoxaparin 40 MG/0.4 ML SYR SUBCUT SCH (17:58)
[2022-06-15] MEDS: Albuterol/Ipratropium NEB.SOL (2.5/0.5 MG) 3 ML NEB.SOLN INH SCH (07:35)
[2022-06-15] MEDS: Budesonide NEB 0.5 MG/2 ML NEB.SOLN INH SCH (07:37)
[2022-06-15] MEDS: DULoxetine DR 30 mg CAP PO SCH (08:23)
[2022-06-15] MEDS: Isosorbide Mononit ER 30mg TAB PO SCH (08:24)
[2022-06-15] MEDS: ISAVUCONAZONIUM SULFATE 186 MG PO SCH (08:25)
[2022-06-15] MEDS: Ruxolitinib (NF) 5 MG TABLET PO SCH (08:39)
[2022-06-15] MEDS ORDERED: Bumetanide IV 0.25 MG/ML 4 ml VIAL (1 mg) IV SLOW PU ONE (11:00)
[2022-06-15 11:55] VITALS: BP 127/64
[2022-06-15 12:02] LABS: Calcium 6.9 mg/dL (8.6-10.3); Creatinine, Serum 1.58 mg/dL (0.67-1.17); Magnesium 2.2 mg/dL (1.9-2.7); Potassium 4.1 mmol/L (3.5-5.0); eGFR CKD-EPI 45.6 (>60)
[2022-06-15 12:58] LABS: Lactate Dehydrogenase, BF 280 U/L
[2022-06-15 13:42] LABS: Fluid Type, Protein, Total PLEURAL; Total Protein, BF 2.6 g/dL
[2022-06-15 14:07] LABS: Glucose, BF 163 mg/dL
[2022-06-15 14:09] LABS: Albumin, BF 1.8 g/dL; Fluid Type, Albumin PLEURAL
[2022-06-21 21:13] LABS: Immunoglobulin A 13 mg/dL (61 - 356); Immunoglobulin G 386 mg/dL (767 - 1590); Immunoglobulin M 22 mg/dL (37 - 286)
== END 2022-06-15 15:00 | disposition home or self-care (01) ==
LOC: EDHOLD 10:56 → ED 10:56 → SUATTDRO 16:07 → MEDTELE 18:48
PROVIDERS: ADMIT Internal Medicine; ATTEND Internal Medicine

== ENCOUNTER 2022-06-20 11:18 | Inpatient (IN) ==
[2022-06-20 13:07] LABS: ABS Lymphocytes 0.6 10^3/ul (1.0-4.8); ABS Monocytes 0.6 10^3/ul (0-0.8); ABS Neutrophils 2.5 10^3/ul (1.5-7.7); Eosinophil % 1.2 %; Hematocrit 23 % (42-52); Hemoglobin 7.7 g/dL (14.0-18.0); Lymphocyte % 14.9 %; Mean Corpuscular HGB Conc 33 g/dL (31-36); Mean Corpuscular Hemoglobin 30 pg (27-31); Mean Corpuscular Volume 90 fL (80-94); Mean Platelet Volume 7.4 fL (7.4-10.4); Nucleated Red Blood Cells % 0.2; Platelet Count 134 10^3/uL (150-450); Red Blood Count 2.58 10^6 /uL (4.18-5.48); Red Cell Distribution Width 20 % (10-15); White Blood Count 3.7 10^3/uL (3.5-10.8)
[2022-06-20 13:49] LABS: Albumin 3.2 g/dL (3.2-5.2); Albumin/Globulin Ratio 1.7 (1-3); Creatinine, Serum 1.56 mg/dL (0.67-1.17); Globulin 1.9 g/dL (2-4); Potassium 4.3 mmol/L (3.5-5.0); Total Bilirubin 0.3 mg/dL (0.2-1.0); Total Protein 5.1 g/dL (6.4-8.9); eGFR CKD-EPI 46.3 (>60)
[2022-06-20 14:23] LABS: High Sensitivity Troponin 1 Hr 37 pg/mL (<20)
[2022-06-20] MEDS ORDERED: Iodixanol (CONTRAST) 320 MG/ML 100 ML SDV IV ONE (16:28)
[2022-06-20] MEDS ORDERED: Fluticasone NASAL SPRAY 50MCG 16 gm SPRAY BTL INTRANASAL PRN (20:23)
[2022-06-20] MEDS ORDERED: Bumetanide IV 0.25 MG/ML 4 ml VIAL (1 mg) IV SLOW PU SCH (20:28)
[2022-06-20] MEDS ORDERED: Albuterol/Ipratropium NEB.SOL (2.5/0.5 MG) 3 ML NEB.SOLN INH SCH (21:00)
[2022-06-20] MEDS ORDERED: Budesonide NEB 0.5 MG/2 ML NEB.SOLN INH SCH (21:00)
[2022-06-20] MEDS ORDERED: Bumetanide IV 0.25 MG/ML 4 ml VIAL (1 mg) IV SLOW PU ONE (21:25)
[2022-06-20] MEDS ORDERED: Dextrose 50% Syringe 50 ml 25 GM/50 ML SYRINGE IV PUSH PRN (21:48)
[2022-06-20] MEDS: PTO: Ruxolitinib (NF) 5 MG TABLET PO SCH (23:56)
[2022-06-21 06:51] LABS: ABS Eosinophils 0.1 10^3/ul (0-0.6); ABS Lymphocytes 0.3 10^3/ul (1.0-4.8); ABS Monocytes 0.5 10^3/ul (0-0.8); ABS Neutrophils 1.7 10^3/ul (1.5-7.7); Hematocrit 29 % (42-52); Hemoglobin 9.9 g/dL (14.0-18.0); Lymphocyte % 13.1 %; Mean Corpuscular HGB Conc 34 g/dL (31-36); Mean Corpuscular Hemoglobin 30 pg (27-31); Mean Corpuscular Volume 89 fL (80-94); Mean Platelet Volume 7.3 fL (7.4-10.4); Nucleated Red Blood Cells % 0.4; Platelet Count 108 10^3/uL (150-450); Red Blood Count 3.27 10^6 /uL (4.18-5.48); Red Cell Distribution Width 18 % (10-15); White Blood Count 2.6 10^3/uL (3.5-10.8)
[2022-06-21 07:05] LABS: Calcium 8.2 mg/dL (8.6-10.3); Creatinine, Serum 1.46 mg/dL (0.67-1.17); Potassium 3.9 mmol/L (3.5-5.0); eGFR CKD-EPI 50.2 (>60)
[2022-06-21] MEDS: Albuterol/Ipratropium NEB.SOL (2.5/0.5 MG) 3 ML NEB.SOLN INH SCH ×2 (07:29→19:22)
[2022-06-21] MEDS: Budesonide NEB 0.5 MG/2 ML NEB.SOLN INH SCH ×2 (07:29→19:22)
[2022-06-21] MEDS: Bumetanide IV 0.25 MG/ML 4 ml VIAL (1 mg) IV SLOW PU SCH ×2 (08:58→20:14)
[2022-06-21] MEDS: DULoxetine DR 30 mg CAP PO SCH (08:59)
[2022-06-21] MEDS: PTO: Ruxolitinib (NF) 5 MG TABLET PO SCH ×2 (08:59→20:14)
[2022-06-21] MEDS: Isosorbide Mononit ER 30mg TAB PO SCH (08:59)
[2022-06-21] MEDS: ISAVUCONAZONIUM SULFATE 186 MG PO SCH (11:39)
[2022-06-21] MEDS: [UNRECOGNIZED DRUG - OTHER] PO SCH (11:39)
[2022-06-21 13:28] LABS: INR 1.14 (0.88-1.18)
[2022-06-21] MEDS ORDERED: Midazolam 2 mg/2 ml VIAL 1 mg/ml 2 ml VIAL (2 mg) ONE (13:43)
[2022-06-21] MEDS ORDERED: fentaNYL 100 mcg/2 ml 50 MCG/ML VIAL ONE (13:43)
[2022-06-21] MEDS ORDERED: Ondansetron 4 mg VIAL 2 MG/ML 2 ml VIAL ONE (13:43)
[2022-06-21 14:08] LABS: Hematocrit for Retic CNT 29 % (42-52); RBC Retic Count 3.27 10^6/uL (4.18-5.48)
[2022-06-21] MEDS ORDERED: ceFAZolin 1 GM ADVAN 1 GM ADDV.VIAL IVPB ONE (15:26)
[2022-06-21 16:44] LABS: Urine Appearance Cloudy; Urine Bilirubin Negative (Negative); Urine Blood 1+ (Negative); Urine Color Yellow; Urine Glucose Negative (Negative); Urine Ketones Negative (Negative); Urine Nitrite Negative (Negative); Urine Protein 1+(30 mg/dL) (Negative); Urine Specific Gravity 1.016 (1.002-1.030); Urine Urobilinogen Negative (Negative)
[2022-06-21 16:53] LABS: Urine Bacteria Absent (Absent); Urine Red Blood Cell 2+(6-10/hpf) (Absent); Urine Squamous Epithelial Cell Present (Absent); Urine White Blood Cell Trace(0-5/hpf) (Absent)
[2022-06-21 17:48] LABS: Body Fluid WBC 290 /mcL
[2022-06-21 18:31] LABS: Body Fluid Appearance Bloody; Body Fluid Color Red; Body Fluid Mono 2 %; Body Fluid Source Pleural Fluid; Body Fluid Total Cells Counted 100
[2022-06-22 06:48] LABS: ABS Lymphocytes 0.3 10^3/ul (1.0-4.8); ABS Monocytes 0.5 10^3/ul (0-0.8); ABS Neutrophils 2.1 10^3/ul (1.5-7.7); Eosinophil % 0.4 %; Hematocrit 32 % (42-52); Hemoglobin 10.7 g/dL (14.0-18.0); Lymphocyte % 10.6 %; Mean Corpuscular HGB Conc 34 g/dL (31-36); Mean Corpuscular Hemoglobin 30 pg (27-31); Mean Corpuscular Volume 89 fL (80-94); Mean Platelet Volume 7.6 fL (7.4-10.4); Nucleated Red Blood Cells % 0.2; Platelet Count 139 10^3/uL (150-450); Red Blood Count 3.55 10^6 /uL (4.18-5.48); Red Cell Distribution Width 18 % (10-15); White Blood Count 2.9 10^3/uL (3.5-10.8)
[2022-06-22 07:09] LABS: Calcium 8.1 mg/dL (8.6-10.3); Creatinine, Serum 1.65 mg/dL (0.67-1.17); Potassium 4.4 mmol/L (3.5-5.0); eGFR CKD-EPI 43.3 (>60)
[2022-06-22] MEDS: Albuterol/Ipratropium NEB.SOL (2.5/0.5 MG) 3 ML NEB.SOLN INH SCH ×2 (07:35→20:06)
[2022-06-22] MEDS: Budesonide NEB 0.5 MG/2 ML NEB.SOLN INH SCH ×2 (07:35→20:10)
[2022-06-22] MEDS: DULoxetine DR 30 mg CAP PO SCH (08:02)
[2022-06-22] MEDS: [UNRECOGNIZED DRUG - OTHER] PO SCH (08:04)
[2022-06-22] MEDS: Bumetanide IV 0.25 MG/ML 4 ml VIAL (1 mg) IV SLOW PU SCH ×2 (08:04→21:02)
[2022-06-22] MEDS: Isosorbide Mononit ER 30mg TAB PO SCH (08:04)
[2022-06-22] MEDS: ISAVUCONAZONIUM SULFATE 186 MG PO SCH (08:05)
[2022-06-22] MEDS: PTO: Ruxolitinib (NF) 5 MG TABLET PO SCH ×2 (08:05→21:55)
[2022-06-22] MEDS ORDERED: Bumetanide IV 0.25 MG/ML 4 ml VIAL (1 mg) IV SLOW PU ONE (11:04)
[2022-06-22 21:41] LABS: Urine TP Concentration 69 mg/dL
[2022-06-23] MEDS: Bumetanide IV 0.25 MG/ML 4 ml VIAL (1 mg) IV SLOW PU SCH (08:09)
[2022-06-23] MEDS: DULoxetine DR 30 mg CAP PO SCH (08:10)
[2022-06-23] MEDS: ISAVUCONAZONIUM SULFATE 186 MG PO SCH (08:11)
[2022-06-23] MEDS: Isosorbide Mononit ER 30mg TAB PO SCH (08:11)
[2022-06-23] MEDS: [UNRECOGNIZED DRUG - OTHER] PO SCH (08:14)
[2022-06-23] MEDS: Budesonide NEB 0.5 MG/2 ML NEB.SOLN INH SCH ×2 (08:22→19:54)
[2022-06-23] MEDS: Albuterol/Ipratropium NEB.SOL (2.5/0.5 MG) 3 ML NEB.SOLN INH SCH ×2 (08:22→19:53)
[2022-06-23] MEDS: PTO: Ruxolitinib (NF) 5 MG TABLET PO SCH ×2 (09:20→21:19)
[2022-06-23 10:21] LABS: Calcium 8.2 mg/dL (8.6-10.3); Creatinine, Serum 1.87 mg/dL (0.67-1.17); Magnesium 2.1 mg/dL (1.9-2.7); Potassium 4.2 mmol/L (3.5-5.0); eGFR CKD-EPI 37.3 (>60)
[2022-06-23] MEDS ORDERED: Lidocaine 1% VIAL 10 MG/ML VIAL 30 ML INJ ONE (14:02)
[2022-06-23 14:25] LABS: Glucose, BF 151 mg/dL
[2022-06-23 14:26] LABS: Fluid Type, Protein, Total PLEURAL; Total Protein, BF 2.3 g/dL
[2022-06-23 16:04] LABS: Albumin 3.2 g/dL (3.2-5.2)
[2022-06-23] MEDS: Albumin Human 25% 25 GM/100 ML BTL IV SCH ×2 (19:41→23:49)
[2022-06-23 20:05] LABS: Body Fluid WBC 53 /mcL
[2022-06-23] MEDS ORDERED: Chlorothiazide IV 500 mg VIAL IV ONE (20:06)
[2022-06-23 20:44] LABS: Body Fluid Appearance Cloudy; Body Fluid Color Yellow; Body Fluid Mono 81 %; Body Fluid Other Cells 11; Body Fluid Source Peritonial Fluid; Body Fluid Total Cells Counted 200
[2022-06-23] MEDS: Bumetanide IV 10 MG in Premix IV 0 ML IV SCH (21:33)
[2022-06-24] MEDS: Albumin Human 25% 25 GM/100 ML BTL IV SCH ×3 (05:44→19:10)
[2022-06-24 06:09] LABS: INR 1.45 (0.88-1.18)
[2022-06-24 06:12] LABS: Hematocrit 24 % (42-52); Hemoglobin 8.1 g/dL (14.0-18.0); Mean Corpuscular HGB Conc 34 g/dL (31-36); Mean Corpuscular Hemoglobin 30 pg (27-31); Mean Corpuscular Volume 88 fL (80-94); Mean Platelet Volume 7.4 fL (7.4-10.4); Platelet Count 82 10^3/uL (150-450); Red Blood Count 2.73 10^6 /uL (4.18-5.48); Red Cell Distribution Width 18 % (10-15); White Blood Count 2.5 10^3/uL (3.5-10.8)
[2022-06-24 06:33] LABS: Albumin 3.7 g/dL (3.2-5.2); Albumin/Globulin Ratio 2.1 (1-3); Creatinine, Serum 1.86 mg/dL (0.67-1.17); Globulin 1.8 g/dL (2-4); Magnesium 2.1 mg/dL (1.9-2.7); Potassium 4.2 mmol/L (3.5-5.0); Total Bilirubin 0.4 mg/dL (0.2-1.0); Total Protein 5.5 g/dL (6.4-8.9); eGFR CKD-EPI 37.5 (>60)
[2022-06-24 06:43] LABS: ABS Lymphocytes 0.3 10^3/ul (1.0-4.8); ABS Monocytes 0.3 10^3/ul (0-0.8); ABS Neutrophils 1.9 10^3/ul (1.5-7.7); Eosinophil % 0.3 %; Lymphocyte % 10.2 %; Nucleated Red Blood Cells % 0.3
[2022-06-24] MEDS: Budesonide NEB 0.5 MG/2 ML NEB.SOLN INH SCH ×2 (08:04→19:29)
[2022-06-24] MEDS: Albuterol/Ipratropium NEB.SOL (2.5/0.5 MG) 3 ML NEB.SOLN INH SCH ×2 (08:05→19:30)
[2022-06-24] MEDS: PTO: Ruxolitinib (NF) 5 MG TABLET PO SCH ×2 (08:22→21:28)
[2022-06-24] MEDS: Ure-Na 15 GM POWD.PACK PO SCH (08:23)
[2022-06-24] MEDS: [UNRECOGNIZED DRUG - OTHER] PO SCH (08:23)
[2022-06-24] MEDS: ISAVUCONAZONIUM SULFATE 186 MG PO SCH (08:26)
[2022-06-24] MEDS: DULoxetine DR 30 mg CAP PO SCH (08:26)
[2022-06-24] MEDS: Isosorbide Mononit ER 30mg TAB PO SCH (08:27)
[2022-06-24] MEDS: Chlorothiazide IV 500 mg VIAL IV SCH (10:10)
[2022-06-24] MEDS: Bumetanide IV 10 MG in Premix IV 0 ML IV SCH (12:27)
[2022-06-24 12:47] LABS: Hepatitis B Surface Antigen Nonreactive (Nonreactive)
[2022-06-24 12:53] LABS: Hepatitis B Core IgM Nonreactive (Nonreactive)
[2022-06-24 13:05] LABS: Hepatitis B Surface Ab Immune (Immune)
[2022-06-24 15:05] LABS: Urine Appearance Clear; Urine Bilirubin Negative (Negative); Urine Blood 1+ (Negative); Urine Color Straw; Urine Glucose Negative (Negative); Urine Ketones Negative (Negative); Urine Nitrite Negative (Negative); Urine Protein Negative (Negative); Urine Specific Gravity 1.006 (1.002-1.030); Urine Urobilinogen Negative (Negative)
[2022-06-24 15:09] LABS: Urine Bacteria Absent (Absent); Urine Red Blood Cell Trace(0-2/hpf) (Absent); Urine White Blood Cell Absent (Absent)
[2022-06-24] MEDS: Enoxaparin 100 MG/ML SYR SUBCUT SCH (21:24)
[2022-06-24] MEDS ORDERED: cefTRIAXone 1 gm/50 mL D5W 1 GM/50 ML BAG IV SCH (22:00)
[2022-06-25] MEDS: Albumin Human 25% 25 GM/100 ML BTL IV SCH ×4 (01:45→20:39)
[2022-06-25] MEDS ORDERED: Bumetanide IV 10 MG in Premix IV 0 ML IV SCH ×2 (02:00→02:01)
[2022-06-25] MEDS ORDERED: Bumetanide 10 MG/40 ML IV DRIP IV SCH (02:02)
[2022-06-25] MEDS: Bumetanide 10 MG/40 ML IV DRIP IV SCH ×2 (04:40→16:53)
[2022-06-25] MEDS: Albuterol/Ipratropium NEB.SOL (2.5/0.5 MG) 3 ML NEB.SOLN INH SCH ×2 (07:08→20:15)
[2022-06-25] MEDS: Budesonide NEB 0.5 MG/2 ML NEB.SOLN INH SCH ×2 (07:08→20:15)
[2022-06-25 07:20] LABS: ABS Lymphocytes 0.2 10^3/ul (1.0-4.8); ABS Monocytes 0.2 10^3/ul (0-0.8); Eosinophil % 0.1 %; Hematocrit 25 % (42-52); Hemoglobin 8.4 g/dL (14.0-18.0); Lymphocyte % 8.8 %; Mean Corpuscular HGB Conc 34 g/dL (31-36); Mean Corpuscular Hemoglobin 30 pg (27-31); Mean Corpuscular Volume 89 fL (80-94); Mean Platelet Volume 7.6 fL (7.4-10.4); Nucleated Red Blood Cells % 0.4; Platelet Count 79 10^3/uL (150-450); Red Blood Count 2.79 10^6 /uL (4.18-5.48); Red Cell Distribution Width 18 % (10-15); White Blood Count 2.4 10^3/uL (3.5-10.8)
[2022-06-25 07:23] LABS: Calcium 8.2 mg/dL (8.6-10.3); Creatinine, Serum 1.85 mg/dL (0.67-1.17); Potassium 3.3 mmol/L (3.5-5.0); eGFR CKD-EPI 37.7 (>60)
[2022-06-25] MEDS ORDERED: Potassium Chlor 20 meq TAB.ER PO ONE ×4 (08:16→18:00)
[2022-06-25 09:13] LABS: PCO2 Arterial 37 mmHg (35-45); PO2 Arterial 79 mmHg (80-100)
[2022-06-25] MEDS: Enoxaparin 100 MG/ML SYR SUBCUT SCH (10:40)
[2022-06-25] MEDS: Isosorbide Mononit ER 30mg TAB PO SCH (10:41)
[2022-06-25] MEDS: DULoxetine DR 30 mg CAP PO SCH (10:41)
[2022-06-25] MEDS: PTO: Ruxolitinib (NF) 5 MG TABLET PO SCH ×2 (11:26→21:11)
[2022-06-25] MEDS: [UNRECOGNIZED DRUG - OTHER] PO SCH (11:38)
[2022-06-25] MEDS: ISAVUCONAZONIUM SULFATE 186 MG PO SCH (12:05)
[2022-06-25] MEDS: Ure-Na 15 GM POWD.PACK PO SCH (12:19)
[2022-06-25 12:32] LABS: Albumin, BF 1.9 g/dL; Fluid Type, Albumin PERITONEAL
[2022-06-25] MEDS: Chlorothiazide IV 500 mg VIAL IV SCH (13:27)
[2022-06-25 14:40] LABS: Calcium 8.1 mg/dL (8.6-10.3); Creatinine, Serum 1.92 mg/dL (0.67-1.17); Potassium 3.2 mmol/L (3.5-5.0); eGFR CKD-EPI 36.1 (>60)
[2022-06-26] MEDS: Albumin Human 25% 25 GM/100 ML BTL IV SCH ×4 (02:27→22:23)
[2022-06-26] MEDS: Bumetanide 10 MG/40 ML IV DRIP IV SCH ×3 (02:30→22:13)
[2022-06-26 06:25] LABS: ABS Lymphocytes 0.3 10^3/ul (1.0-4.8); ABS Monocytes 0.2 10^3/ul (0-0.8); ABS Neutrophils 1.6 10^3/ul (1.5-7.7); Eosinophil % 0.1 %; Hematocrit 21 % (42-52); Hemoglobin 6.9 g/dL (14.0-18.0); Mean Corpuscular HGB Conc 34 g/dL (31-36); Mean Corpuscular Hemoglobin 30 pg (27-31); Mean Corpuscular Volume 89 fL (80-94); Mean Platelet Volume 7.6 fL (7.4-10.4); Nucleated Red Blood Cells % 0.4; Platelet Count 67 10^3/uL (150-450); Red Cell Distribution Width 18 % (10-15); White Blood Count 2.1 10^3/uL (3.5-10.8)
[2022-06-26 06:53] LABS: Calcium 8.3 mg/dL (8.6-10.3); Creatinine, Serum 1.82 mg/dL (0.67-1.17); Magnesium 2.1 mg/dL (1.9-2.7); Potassium 3.3 mmol/L (3.5-5.0); eGFR CKD-EPI 38.5 (>60)
[2022-06-26] MEDS: Budesonide NEB 0.5 MG/2 ML NEB.SOLN INH SCH ×2 (07:11→19:43)
[2022-06-26] MEDS: Albuterol/Ipratropium NEB.SOL (2.5/0.5 MG) 3 ML NEB.SOLN INH SCH ×2 (07:11→19:43)
[2022-06-26] MEDS: Isosorbide Mononit ER 30mg TAB PO SCH (08:27)
[2022-06-26] MEDS: DULoxetine DR 30 mg CAP PO SCH (08:27)
[2022-06-26] MEDS: [UNRECOGNIZED DRUG - OTHER] PO SCH (08:28)
[2022-06-26] MEDS: ISAVUCONAZONIUM SULFATE 186 MG PO SCH (08:29)
[2022-06-26] MEDS: Ure-Na 15 GM POWD.PACK PO SCH (08:31)
[2022-06-26 11:01] LABS: Glucose, BF 247 mg/dL
[2022-06-26 11:04] LABS: Fluid Type, Protein, Total PERITONEAL
[2022-06-26] MEDS: Chlorothiazide IV 500 mg VIAL IV SCH (13:26)
[2022-06-26] MEDS: PTO: Ruxolitinib (NF) 5 MG TABLET PO SCH ×2 (13:27→22:32)
[2022-06-26] MEDS: Potassium Chlor 20 meq TAB.ER PO SCH ×2 (13:37→22:32)
[2022-06-26 21:37] LABS: Hematocrit 22 % (42-52); Hemoglobin 7.3 g/dL (14.0-18.0)
[2022-06-27] MEDS: Albumin Human 25% 25 GM/100 ML BTL IV SCH ×4 (02:51→20:13)
[2022-06-27] MEDS: Bumetanide 10 MG/40 ML IV DRIP IV SCH ×2 (04:35→17:13)
[2022-06-27] MEDS: Budesonide NEB 0.5 MG/2 ML NEB.SOLN INH SCH ×2 (07:02→19:09)
[2022-06-27] MEDS: Albuterol/Ipratropium NEB.SOL (2.5/0.5 MG) 3 ML NEB.SOLN INH SCH ×2 (07:02→19:08)
[2022-06-27] MEDS: Chlorothiazide IV 500 mg VIAL IV SCH (08:33)
[2022-06-27] MEDS: Potassium Chlor 20 meq TAB.ER PO SCH ×2 (08:37→20:30)
[2022-06-27] MEDS: DULoxetine DR 30 mg CAP PO SCH (08:37)
[2022-06-27] MEDS: Isosorbide Mononit ER 30mg TAB PO SCH (08:38)
[2022-06-27] MEDS: PTO: Ruxolitinib (NF) 5 MG TABLET PO SCH ×2 (08:44→20:32)
[2022-06-27] MEDS: Ure-Na 15 GM POWD.PACK PO SCH (08:45)
[2022-06-27] MEDS: [UNRECOGNIZED DRUG - OTHER] PO SCH (08:45)
[2022-06-27 08:52] LABS: Calcium 8.5 mg/dL (8.6-10.3); Creatinine, Serum 1.89 mg/dL (0.67-1.17); Magnesium 2.1 mg/dL (1.9-2.7); Potassium 3.2 mmol/L (3.5-5.0); eGFR CKD-EPI 36.8 (>60)
[2022-06-27 08:55] LABS: Hematocrit 22 % (42-52); Hemoglobin 7.3 g/dL (14.0-18.0); Mean Corpuscular HGB Conc 33 g/dL (31-36); Mean Corpuscular Hemoglobin 30 pg (27-31); Mean Corpuscular Volume 89 fL (80-94); Mean Platelet Volume 7.8 fL (7.4-10.4); Platelet Count 62 10^3/uL (150-450); Red Blood Count 2.45 10^6 /uL (4.18-5.48); Red Cell Distribution Width 17 % (10-15); White Blood Count 1.9 10^3/uL (3.5-10.8)
[2022-06-27 09:21] LABS: ABS Lymphocytes 0.2 10^3/ul (1.0-4.8); ABS Monocytes 0.2 10^3/ul (0-0.8); ABS Neutrophils 1.5 10^3/ul (1.5-7.7); Eosinophil % 0.3 %; Lymphocyte % 11.2 %; Nucleated Red Blood Cells % 0.6
[2022-06-27] MEDS: ISAVUCONAZONIUM SULFATE 186 MG PO SCH (09:29)
[2022-06-27 16:07] LABS: Hematocrit 25 % (42-52); Hemoglobin 8.3 g/dL (14.0-18.0)
[2022-06-27] MEDS ORDERED: Bumetanide IV 10 MG in Premix IV 0 ML IV SCH (16:34)
[2022-06-27 17:40] LABS: Glucose Confirmatory 440 mg/dL (70-100)
[2022-06-27] MEDS: Bumetanide IV 10 MG in Premix IV 0 ML IV SCH ×2 (18:10→22:52)
[2022-06-28] MEDS: Albumin Human 25% 25 GM/100 ML BTL IV SCH ×4 (02:21→20:13)
[2022-06-28] MEDS: Bumetanide IV 10 MG in Premix IV 0 ML IV SCH ×4 (02:30→20:02)
[2022-06-28] MEDS: Albuterol/Ipratropium NEB.SOL (2.5/0.5 MG) 3 ML NEB.SOLN INH SCH ×2 (07:00→19:12)
[2022-06-28] MEDS: Budesonide NEB 0.5 MG/2 ML NEB.SOLN INH SCH ×2 (07:00→19:12)
[2022-06-28 07:06] LABS: ABS Lymphocytes 0.2 10^3/ul (1.0-4.8); ABS Monocytes 0.2 10^3/ul (0-0.8); Eosinophil % 0.1 %; Hematocrit 23 % (42-52); Hemoglobin 7.9 g/dL (14.0-18.0); Lymphocyte % 8.7 %; Mean Corpuscular HGB Conc 34 g/dL (31-36); Mean Corpuscular Hemoglobin 30 pg (27-31); Mean Corpuscular Volume 88 fL (80-94); Mean Platelet Volume 7.5 fL (7.4-10.4); Nucleated Red Blood Cells % 0.1; Platelet Count 56 10^3/uL (150-450); Red Blood Count 2.66 10^6 /uL (4.18-5.48); Red Cell Distribution Width 17 % (10-15); White Blood Count 2.5 10^3/uL (3.5-10.8)
[2022-06-28 07:24] LABS: Calcium 8.8 mg/dL (8.6-10.3); Creatinine, Serum 1.9 mg/dL (0.67-1.17); Potassium 3.3 mmol/L (3.5-5.0); eGFR CKD-EPI 36.6 (>60)
[2022-06-28] MEDS: [UNRECOGNIZED DRUG - OTHER] PO SCH (09:25)
[2022-06-28] MEDS: Isosorbide Mononit ER 30mg TAB PO SCH (09:25)
[2022-06-28] MEDS: DULoxetine DR 30 mg CAP PO SCH (09:26)
[2022-06-28] MEDS: Potassium Chlor 20 meq TAB.ER PO SCH ×2 (09:27→21:59)
[2022-06-28] MEDS: PTO: Ruxolitinib (NF) 5 MG TABLET PO SCH ×2 (09:28→22:00)
[2022-06-28] MEDS: ISAVUCONAZONIUM SULFATE 186 MG PO SCH (09:29)
[2022-06-28] MEDS: Morphine 2 MG/ML SYRINGE IV PRN (12:59)
[2022-06-28 16:28] LABS: Hematocrit 26 % (42-52); Hemoglobin 8.9 g/dL (14.0-18.0)
[2022-06-28] MEDS ORDERED: Insulin GLARGINE 100 un/ml 10 ml VIAL SUBCUT SCH (21:00)
[2022-06-29] MEDS: Bumetanide IV 10 MG in Premix IV 0 ML IV SCH ×3 (01:25→10:01)
[2022-06-29] MEDS: Albumin Human 25% 25 GM/100 ML BTL IV SCH ×3 (02:13→14:33)
[2022-06-29 07:46] LABS: ABS Lymphocytes 0.1 10^3/ul (1.0-4.8); ABS Monocytes 0.3 10^3/ul (0-0.8); ABS Neutrophils 4.2 10^3/ul (1.5-7.7); Hematocrit 27 % (42-52); Hemoglobin 8.7 g/dL (14.0-18.0); Lymphocyte % 2.6 %; Mean Corpuscular HGB Conc 33 g/dL (31-36); Mean Corpuscular Hemoglobin 30 pg (27-31); Mean Corpuscular Volume 90 fL (80-94); Mean Platelet Volume 7.4 fL (7.4-10.4); Platelet Count 52 10^3/uL (150-450); Red Blood Count 2.95 10^6 /uL (4.18-5.48); Red Cell Distribution Width 17 % (10-15); White Blood Count 4.6 10^3/uL (3.5-10.8)
[2022-06-29 07:51] LABS: Calcium 8.9 mg/dL (8.6-10.3); Creatinine, Serum 1.84 mg/dL (0.67-1.17); Potassium 3.6 mmol/L (3.5-5.0)
[2022-06-29] MEDS: Albuterol/Ipratropium NEB.SOL (2.5/0.5 MG) 3 ML NEB.SOLN INH SCH ×2 (08:27→19:41)
[2022-06-29] MEDS: Budesonide NEB 0.5 MG/2 ML NEB.SOLN INH SCH ×2 (08:28→19:41)
[2022-06-29] MEDS: Isosorbide Mononit ER 30mg TAB PO SCH (10:01)
[2022-06-29] MEDS: ISAVUCONAZONIUM SULFATE 186 MG PO SCH (10:35)
[2022-06-29] MEDS: [UNRECOGNIZED DRUG - OTHER] PO SCH (10:36)
[2022-06-29] MEDS: PTO: Ruxolitinib (NF) 5 MG TABLET PO SCH ×2 (10:36→21:18)
[2022-06-29] MEDS: DULoxetine DR 30 mg CAP PO SCH (10:37)
[2022-06-29] MEDS: Potassium Chlor 20 meq TAB.ER PO SCH ×2 (10:38→21:21)
[2022-06-29] MEDS ORDERED: Insulin GLARGINE 100 un/ml 10 ml VIAL SUBCUT ONE (11:21)
[2022-06-29] MEDS: Morphine 2 MG/ML SYRINGE IV PRN ×2 (12:25→21:53)
[2022-06-29 19:09] LABS: Hematocrit 28 % (42-52); Hemoglobin 9.1 g/dL (14.0-18.0)
[2022-06-29] MEDS: Insulin GLARGINE 100 un/ml 10 ml VIAL SUBCUT SCH (21:17)
[2022-06-30 06:34] LABS: Hematocrit 27 % (42-52); Hemoglobin 9.4 g/dL (14.0-18.0); Mean Corpuscular HGB Conc 34 g/dL (31-36); Mean Corpuscular Hemoglobin 31 pg (27-31); Mean Corpuscular Volume 90 fL (80-94); Mean Platelet Volume 8.3 fL (7.4-10.4); Platelet Count 69 10^3/uL (150-450); Red Blood Count 3.06 10^6 /uL (4.18-5.48); Red Cell Distribution Width 18 % (10-15); White Blood Count 5.7 10^3/uL (3.5-10.8)
[2022-06-30 06:46] LABS: Creatinine, Serum 2.01 mg/dL (0.67-1.17); Potassium 4.3 mmol/L (3.5-5.0); eGFR CKD-EPI 34.2 (>60)
[2022-06-30] MEDS: Albuterol/Ipratropium NEB.SOL (2.5/0.5 MG) 3 ML NEB.SOLN INH SCH ×2 (07:05→20:13)
[2022-06-30] MEDS: Budesonide NEB 0.5 MG/2 ML NEB.SOLN INH SCH ×2 (07:05→20:12)
[2022-06-30 07:39] LABS: ABS Lymphocytes 0.2 10^3/ul (1.0-4.8); ABS Monocytes 0.3 10^3/ul (0-0.8); ABS Neutrophils 5.2 10^3/ul (1.5-7.7); Eosinophil % 0.1 %; Lymphocyte % 3.2 %
[2022-06-30 07:57] LABS: Magnesium 2.4 mg/dL (1.9-2.7)
[2022-06-30] MEDS: DULoxetine DR 30 mg CAP PO SCH (08:47)
[2022-06-30] MEDS: PTO: Ruxolitinib (NF) 5 MG TABLET PO SCH ×2 (08:49→20:55)
[2022-06-30] MEDS: [UNRECOGNIZED DRUG - OTHER] PO SCH (08:51)
[2022-06-30] MEDS: ISAVUCONAZONIUM SULFATE 186 MG PO SCH (08:56)
[2022-06-30] MEDS ORDERED: Potassium Chlor 20 meq TAB.ER PO SCH (09:00)
[2022-06-30 11:27] LABS: C Reactive Protein 55.86 mg/L (<8.01)
[2022-06-30] MEDS ORDERED: cefTRIAXone 2 gm/50 mL D5W 2 GM/50 ML BAG IV SCH (11:30)
[2022-06-30] MEDS: cefTRIAXone 2 GM ADDV.VIAL 2 GM in NS 0.9% 100 ml BAG 100 ML IV SCH (13:25)
[2022-06-30] MEDS: Albumin Human 5% 12.5 GM/250 ML BTL IV SCH ×2 (15:06→17:55)
[2022-06-30] MEDS: Insulin GLARGINE 100 un/ml 10 ml VIAL SUBCUT SCH (20:57)
[2022-07-01] MEDS: Budesonide NEB 0.5 MG/2 ML NEB.SOLN INH SCH ×2 (07:02→19:54)
[2022-07-01] MEDS: Albuterol/Ipratropium NEB.SOL (2.5/0.5 MG) 3 ML NEB.SOLN INH SCH ×2 (07:03→19:54)
[2022-07-01 07:52] LABS: Hematocrit 27 % (42-52); Hemoglobin 8.7 g/dL (14.0-18.0); Mean Corpuscular HGB Conc 33 g/dL (31-36); Mean Corpuscular Hemoglobin 29 pg (27-31); Mean Corpuscular Volume 90 fL (80-94); Red Blood Count 2.99 10^6 /uL (4.18-5.48); Red Cell Distribution Width 17 % (10-15); White Blood Count 2.6 10^3/uL (3.5-10.8)
[2022-07-01 08:28] LABS: Albumin 4.4 g/dL (3.2-5.2); Albumin/Globulin Ratio 3.4 (1-3); Calcium 8.8 mg/dL (8.6-10.3); Creatinine, Serum 2.9 mg/dL (0.67-1.17); Globulin 1.3 g/dL (2-4); Potassium 4.3 mmol/L (3.5-5.0); Total Protein 5.7 g/dL (6.4-8.9)
[2022-07-01 08:39] LABS: ABS Lymphocytes 0.1 10^3/ul (1.0-4.8); ABS Neutrophils 2.5 10^3/ul (1.5-7.7); Eosinophil % 0.1 %; Lymphocyte % 2.1 %; Mean Platelet Volume 7.7 fL (7.4-10.4); Nucleated Red Blood Cells % 0.1; Platelet Count 48 10^3/uL (150-450)
[2022-07-01 09:22] LABS: PCO2 Arterial 39 mmHg (35-45)
[2022-07-01 09:28] LABS: PO2 Arterial 55 mmHg (80-100)
[2022-07-01] MEDS ORDERED: Midazolam 2 mg/2 ml VIAL 1 mg/ml 2 ml VIAL (2 mg) IV SLOW PU ONE (11:13)
[2022-07-01] MEDS: cefTRIAXone 2 GM ADDV.VIAL 2 GM in NS 0.9% 100 ml BAG 100 ML IV SCH (12:30)
[2022-07-01] MEDS ORDERED: Heparin 1,000 UNIT/ML 10 ml (10,000 UNITS) CATHLAB/DIALYSIS DIALYSIS ONE (13:00)
[2022-07-01] MEDS: [UNRECOGNIZED DRUG - OTHER] PO SCH (13:18)
[2022-07-01] MEDS: DULoxetine DR 30 mg CAP PO SCH (13:19)
[2022-07-01] MEDS: ISAVUCONAZONIUM SULFATE 186 MG PO SCH (13:19)
[2022-07-01] MEDS: PTO: Ruxolitinib (NF) 5 MG TABLET PO SCH ×2 (13:20→21:51)
[2022-07-01] MEDS ORDERED: Albumin Human 25% 25 GM/100 ML BTL IV ONE (15:12)
[2022-07-01] MEDS ORDERED: NS 0.9% 1000 ml BAG 1,000 ML IV ONE (15:13)
[2022-07-01] MEDS ORDERED: Norepinephrine 16MCG/ML BAGD5W 4,000 MCG/250 ML BAG IV SCH (16:00)
[2022-07-01] MEDS: Acetaminophen IV 1 GM/100ML 1,000 MG/100 ML BAG IV SCH ×2 (16:45→22:17)
[2022-07-01 21:29] LABS: Calcium 8.6 mg/dL (8.6-10.3); Creatinine, Serum 2.13 mg/dL (0.67-1.17); Magnesium 2.2 mg/dL (1.9-2.7); Potassium 3.8 mmol/L (3.5-5.0); eGFR CKD-EPI 31.9 (>60)
[2022-07-02] MEDS: Levothyroxine 100 MCG/5 ML VIAL IV SCH (06:03)
[2022-07-02] MEDS: Acetaminophen IV 1 GM/100ML 1,000 MG/100 ML BAG IV SCH ×3 (06:04→22:43)
[2022-07-02 06:42] LABS: ABS Lymphocytes 0.2 10^3/ul (1.0-4.8); ABS Monocytes 0.3 10^3/ul (0-0.8); ABS Neutrophils 5.1 10^3/ul (1.5-7.7); Eosinophil % 0.2 %; Hematocrit 23 % (42-52); Hemoglobin 7.5 g/dL (14.0-18.0); Lymphocyte % 4.4 %; Mean Corpuscular HGB Conc 33 g/dL (31-36); Mean Corpuscular Hemoglobin 30 pg (27-31); Mean Corpuscular Volume 91 fL (80-94); Mean Platelet Volume 7.4 fL (7.4-10.4); Platelet Count 36 10^3/uL (150-450); Red Blood Count 2.52 10^6 /uL (4.18-5.48); Red Cell Distribution Width 18 % (10-15); White Blood Count 5.6 10^3/uL (3.5-10.8)
[2022-07-02 07:18] LABS: Albumin/Globulin Ratio 3.3 (1-3); Calcium 8.2 mg/dL (8.6-10.3); Creatinine, Serum 2.64 mg/dL (0.67-1.17); Globulin 1.2 g/dL (2-4); Magnesium 2.2 mg/dL (1.9-2.7); Potassium 3.8 mmol/L (3.5-5.0); Total Bilirubin 0.6 mg/dL (0.2-1.0); Total Protein 5.2 g/dL (6.4-8.9); eGFR CKD-EPI 24.6 (>60)
[2022-07-02] MEDS ORDERED: Heparin 1,000 UNIT/ML 10 ml (10,000 UNITS) CATHLAB/DIALYSIS DIALYSIS ONE (09:00)
[2022-07-02] MEDS: Budesonide NEB 0.5 MG/2 ML NEB.SOLN INH SCH ×2 (09:45→19:02)
[2022-07-02] MEDS: Albuterol/Ipratropium NEB.SOL (2.5/0.5 MG) 3 ML NEB.SOLN INH SCH ×2 (09:46→19:02)
[2022-07-02 10:22] LABS: Hematocrit 24 % (42-52); Hemoglobin 7.7 g/dL (14.0-18.0)
[2022-07-02] MEDS: ISAVUCONAZONIUM SULFATE 186 MG PO SCH (10:46)
[2022-07-02] MEDS: [UNRECOGNIZED DRUG - OTHER] PO SCH (10:46)
[2022-07-02] MEDS: PTO: Ruxolitinib (NF) 5 MG TABLET PO SCH ×2 (10:46→23:46)
[2022-07-02] MEDS: DULoxetine DR 30 mg CAP PO SCH (10:46)
[2022-07-02] MEDS ORDERED: Pantoprazole VIAL 40 MG VIAL IV SCH (12:00)
[2022-07-02 14:52] LABS: Calcium 9.1 mg/dL (8.6-10.3); Creatinine, Serum 0.69 mg/dL (0.67-1.17); Potassium 3.4 mmol/L (3.5-5.0); eGFR CKD-EPI 97.1 (>60)
[2022-07-02] MEDS: cefTRIAXone 2 GM ADDV.VIAL 2 GM in NS 0.9% 100 ml BAG 100 ML IV SCH (15:00)
[2022-07-02 15:09] LABS: Hematocrit 31 % (42-52); Hemoglobin 10.1 g/dL (14.0-18.0); Mean Corpuscular HGB Conc 33 g/dL (31-36); Mean Corpuscular Hemoglobin 30 pg (27-31); Mean Corpuscular Volume 90 fL (80-94); Mean Platelet Volume 7.4 fL (7.4-10.4); Platelet Count 45 10^3/uL (150-450); Red Blood Count 3.44 10^6 /uL (4.18-5.48); Red Cell Distribution Width 17 % (10-15); White Blood Count 6.9 10^3/uL (3.5-10.8)
[2022-07-02 15:51] LABS: ABS Lymphocytes 0.2 10^3/ul (1.0-4.8); ABS Monocytes 0.4 10^3/ul (0-0.8); ABS Neutrophils 6.3 10^3/ul (1.5-7.7); Eosinophil % 0.4 %
[2022-07-02 18:33] LABS: Hematocrit 29 % (42-52); Hemoglobin 9.4 g/dL (14.0-18.0)
[2022-07-02] MEDS: Pantoprazole VIAL 40 MG VIAL IV SCH (19:47)
[2022-07-03 00:15] LABS: Hematocrit 27 % (42-52); Hemoglobin 8.9 g/dL (14.0-18.0)
[2022-07-03] MEDS: Levothyroxine 100 MCG/5 ML VIAL IV SCH (05:11)
[2022-07-03] MEDS: Acetaminophen IV 1 GM/100ML 1,000 MG/100 ML BAG IV SCH ×3 (05:16→22:35)
[2022-07-03 06:44] LABS: ABS Lymphocytes 0.1 10^3/ul (1.0-4.8); ABS Monocytes 0.3 10^3/ul (0-0.8); ABS Neutrophils 5.2 10^3/ul (1.5-7.7); Eosinophil % 0.5 %; Hematocrit 28 % (42-52); Hemoglobin 8.9 g/dL (14.0-18.0); Lymphocyte % 2.3 %; Mean Corpuscular HGB Conc 32 g/dL (31-36); Mean Corpuscular Hemoglobin 29 pg (27-31); Mean Corpuscular Volume 89 fL (80-94); Mean Platelet Volume 7.3 fL (7.4-10.4); Platelet Count 37 10^3/uL (150-450); Red Blood Count 3.08 10^6 /uL (4.18-5.48); Red Cell Distribution Width 17 % (10-15); White Blood Count 5.7 10^3/uL (3.5-10.8)
[2022-07-03 07:27] LABS: Albumin 3.9 g/dL (3.2-5.2); Albumin/Globulin Ratio 3.3 (1-3); Calcium 8.1 mg/dL (8.6-10.3); Creatinine, Serum 2.43 mg/dL (0.67-1.17); Globulin 1.2 g/dL (2-4); Magnesium 1.9 mg/dL (1.9-2.7); Potassium 3.8 mmol/L (3.5-5.0); Total Bilirubin 0.6 mg/dL (0.2-1.0); Total Protein 5.1 g/dL (6.4-8.9); eGFR CKD-EPI 27.2 (>60)
[2022-07-03] MEDS: Budesonide NEB 0.5 MG/2 ML NEB.SOLN INH SCH ×2 (07:35→19:20)
[2022-07-03] MEDS: Albuterol/Ipratropium NEB.SOL (2.5/0.5 MG) 3 ML NEB.SOLN INH SCH ×2 (07:35→19:19)
[2022-07-03] MEDS ORDERED: Lactated Ringers 1000 ml BAG 1,000 ML IV ONE (07:56)
[2022-07-03 08:34] LABS: Urine Appearance Cloudy; Urine Bilirubin Negative (Negative); Urine Blood 1+ (Negative); Urine Color Amber; Urine Glucose Negative (Negative); Urine Ketones Negative (Negative); Urine Nitrite Negative (Negative); Urine Protein 1+(30 mg/dL) (Negative); Urine Specific Gravity 1.017 (1.002-1.030); Urine Urobilinogen Negative (Negative)
[2022-07-03 08:43] LABS: Urine Bacteria Absent (Absent); Urine Red Blood Cell 1+(3-5/hpf) (Absent); Urine White Blood Cell Trace(0-5/hpf) (Absent)
[2022-07-03] MEDS: Pantoprazole VIAL 40 MG VIAL IV SCH ×2 (08:57→20:14)
[2022-07-03] MEDS: DULoxetine DR 30 mg CAP PO SCH (08:57)
[2022-07-03] MEDS: [UNRECOGNIZED DRUG - OTHER] PO SCH ×2 (09:37→12:19)
[2022-07-03] MEDS: PTO: Ruxolitinib (NF) 5 MG TABLET PO SCH ×3 (09:37→20:15)
[2022-07-03] MEDS: ISAVUCONAZONIUM SULFATE 186 MG PO SCH (10:41)
[2022-07-03] MEDS: cefTRIAXone 2 GM ADDV.VIAL 2 GM in NS 0.9% 100 ml BAG 100 ML IV SCH (11:44)
[2022-07-03 14:20] LABS: ABS Lymphocytes 0.1 10^3/ul (1.0-4.8); ABS Monocytes 0.2 10^3/ul (0-0.8); ABS Neutrophils 7.5 10^3/ul (1.5-7.7); Eosinophil % 0.2 %; Hematocrit 29 % (42-52); Hemoglobin 9.5 g/dL (14.0-18.0); Lymphocyte % 1.3 %; Mean Corpuscular HGB Conc 32 g/dL (31-36); Mean Corpuscular Hemoglobin 29 pg (27-31); Mean Corpuscular Volume 90 fL (80-94); Mean Platelet Volume 8.1 fL (7.4-10.4); Platelet Count 49 10^3/uL (150-450); Red Blood Count 3.26 10^6 /uL (4.18-5.48); Red Cell Distribution Width 18 % (10-15); White Blood Count 7.8 10^3/uL (3.5-10.8)
[2022-07-03] MEDS ORDERED: Dextrose 50% Syringe 50 ml 25 GM/50 ML SYRINGE IV PUSH PRN (17:37)
[2022-07-03 18:01] LABS: Glucose Confirmatory 494 mg/dL (70-100)
[2022-07-03 21:55] LABS: ABS Lymphocytes 0.1 10^3/ul (1.0-4.8); ABS Monocytes 0.3 10^3/ul (0-0.8); ABS Neutrophils 6.7 10^3/ul (1.5-7.7); Eosinophil % 0.1 %; Hematocrit 27 % (42-52); Hemoglobin 9.1 g/dL (14.0-18.0); Lymphocyte % 1.8 %; Mean Corpuscular HGB Conc 33 g/dL (31-36); Mean Corpuscular Hemoglobin 29 pg (27-31); Mean Corpuscular Volume 89 fL (80-94); Mean Platelet Volume 8.2 fL (7.4-10.4); Platelet Count 61 10^3/uL (150-450); Red Blood Count 3.08 10^6 /uL (4.18-5.48); Red Cell Distribution Width 17 % (10-15); White Blood Count 7.1 10^3/uL (3.5-10.8)
[2022-07-04 04:51] LABS: ABS Lymphocytes 0.2 10^3/ul (1.0-4.8); ABS Monocytes 0.3 10^3/ul (0-0.8); ABS Neutrophils 6.2 10^3/ul (1.5-7.7); Eosinophil % 0.2 %; Hematocrit 27 % (42-52); Lymphocyte % 3.4 %; Mean Corpuscular HGB Conc 33 g/dL (31-36); Mean Corpuscular Hemoglobin 30 pg (27-31); Mean Corpuscular Volume 89 fL (80-94); Platelet Count 60 10^3/uL (150-450); Red Blood Count 3.04 10^6 /uL (4.18-5.48); Red Cell Distribution Width 17 % (10-15); White Blood Count 6.7 10^3/uL (3.5-10.8)
[2022-07-04 05:27] LABS: Albumin 3.9 g/dL (3.2-5.2); Albumin/Globulin Ratio 2.6 (1-3); Calcium 7.9 mg/dL (8.6-10.3); Creatinine, Serum 2.34 mg/dL (0.67-1.17); Globulin 1.5 g/dL (2-4); Magnesium 1.9 mg/dL (1.9-2.7); Potassium 3.4 mmol/L (3.5-5.0); Total Bilirubin 0.5 mg/dL (0.2-1.0); Total Protein 5.4 g/dL (6.4-8.9); eGFR CKD-EPI 28.5 (>60)
[2022-07-04] MEDS: Levothyroxine 100 MCG/5 ML VIAL IV SCH (06:49)
[2022-07-04] MEDS: Acetaminophen IV 1 GM/100ML 1,000 MG/100 ML BAG IV SCH ×3 (06:49→22:49)
[2022-07-04] MEDS: Budesonide NEB 0.5 MG/2 ML NEB.SOLN INH SCH ×2 (07:23→19:33)
[2022-07-04] MEDS: Albuterol/Ipratropium NEB.SOL (2.5/0.5 MG) 3 ML NEB.SOLN INH SCH ×2 (07:23→19:34)
[2022-07-04] MEDS: Pantoprazole VIAL 40 MG VIAL IV SCH ×2 (08:58→21:27)
[2022-07-04] MEDS: DULoxetine DR 30 mg CAP PO SCH (08:59)
[2022-07-04] MEDS: ISAVUCONAZONIUM SULFATE 186 MG PO SCH (10:31)
[2022-07-04] MEDS: PTO: Ruxolitinib (NF) 5 MG TABLET PO SCH ×2 (10:35→21:28)
[2022-07-04] MEDS: [UNRECOGNIZED DRUG - OTHER] PO SCH (10:35)
[2022-07-04] MEDS: Heparin 1,000 UNIT/ML 10 ml (10,000 UNITS) CATHLAB/DIALYSIS DIALYSIS PRN (11:24)
[2022-07-04] MEDS: cefTRIAXone 2 GM ADDV.VIAL 2 GM in NS 0.9% 100 ml BAG 100 ML IV SCH (11:51)
[2022-07-04] MEDS ORDERED: Benzocaine/Menthol LOZ PO PRN (17:12)
[2022-07-04] MEDS ORDERED: Dextrose 50% Syringe 50 ml 25 GM/50 ML SYRINGE IV PUSH PRN (21:38)
[2022-07-05 04:48] LABS: ABS Lymphocytes 0.3 10^3/ul (1.0-4.8); ABS Monocytes 0.3 10^3/ul (0-0.8); ABS Neutrophils 5.6 10^3/ul (1.5-7.7); Eosinophil % 0.1 %; Hematocrit 27 % (42-52); Lymphocyte % 4.5 %; Mean Corpuscular HGB Conc 33 g/dL (31-36); Mean Corpuscular Hemoglobin 29 pg (27-31); Mean Corpuscular Volume 89 fL (80-94); Mean Platelet Volume 8.2 fL (7.4-10.4); Nucleated Red Blood Cells % 0.1; Platelet Count 60 10^3/uL (150-450); Red Blood Count 3.07 10^6 /uL (4.18-5.48); Red Cell Distribution Width 17 % (10-15); White Blood Count 6.2 10^3/uL (3.5-10.8)
[2022-07-05 05:10] LABS: Calcium 8.3 mg/dL (8.6-10.3); Creatinine, Serum 1.74 mg/dL (0.67-1.17); Magnesium 1.8 mg/dL (1.9-2.7); Potassium 3.7 mmol/L (3.5-5.0); eGFR CKD-EPI 40.6 (>60)
[2022-07-05] MEDS: Acetaminophen IV 1 GM/100ML 1,000 MG/100 ML BAG IV SCH ×3 (05:27→21:57)
[2022-07-05] MEDS: Levothyroxine 100 MCG/5 ML VIAL IV SCH (06:17)
[2022-07-05] MEDS: Budesonide NEB 0.5 MG/2 ML NEB.SOLN INH SCH ×2 (08:13→19:57)
[2022-07-05] MEDS: Albuterol/Ipratropium NEB.SOL (2.5/0.5 MG) 3 ML NEB.SOLN INH SCH ×2 (08:13→19:57)
[2022-07-05] MEDS: Pantoprazole VIAL 40 MG VIAL IV SCH ×2 (08:56→20:56)
[2022-07-05] MEDS: DULoxetine DR 30 mg CAP PO SCH (08:57)
[2022-07-05] MEDS: PTO: Ruxolitinib (NF) 5 MG TABLET PO SCH ×2 (09:19→20:56)
[2022-07-05] MEDS: [UNRECOGNIZED DRUG - OTHER] PO SCH (09:19)
[2022-07-05] MEDS: ISAVUCONAZONIUM SULFATE 186 MG PO SCH (16:06)
[2022-07-06 03:52] LABS: ABS Lymphocytes 0.2 10^3/ul (1.0-4.8); ABS Monocytes 0.2 10^3/ul (0-0.8); ABS Neutrophils 4.3 10^3/ul (1.5-7.7); Eosinophil % 0.2 %; Hematocrit 28 % (42-52); Hemoglobin 9.4 g/dL (14.0-18.0); Lymphocyte % 5.1 %; Mean Corpuscular HGB Conc 33 g/dL (31-36); Mean Corpuscular Hemoglobin 30 pg (27-31); Mean Corpuscular Volume 89 fL (80-94); Mean Platelet Volume 8.8 fL (7.4-10.4); Platelet Count 47 10^3/uL (150-450); Red Blood Count 3.18 10^6 /uL (4.18-5.48); Red Cell Distribution Width 17 % (10-15); White Blood Count 4.8 10^3/uL (3.5-10.8)
[2022-07-06 04:37] LABS: Calcium 8.3 mg/dL (8.6-10.3); Creatinine, Serum 1.96 mg/dL (0.67-1.17); Magnesium 1.8 mg/dL (1.9-2.7); Potassium 3.5 mmol/L (3.5-5.0); eGFR CKD-EPI 35.2 (>60)
[2022-07-06] MEDS: Levothyroxine 100 MCG/5 ML VIAL IV SCH (05:02)
[2022-07-06] MEDS ORDERED: Magnesium Sulfate IV 1GM/100ML 1 GM/100 ML BAG IV ONE (05:11)
[2022-07-06] MEDS: Acetaminophen IV 1 GM/100ML 1,000 MG/100 ML BAG IV SCH (05:19)
[2022-07-06] MEDS: Albuterol/Ipratropium NEB.SOL (2.5/0.5 MG) 3 ML NEB.SOLN INH SCH ×2 (06:54→19:16)
[2022-07-06] MEDS: Budesonide NEB 0.5 MG/2 ML NEB.SOLN INH SCH ×2 (06:54→19:17)
[2022-07-06] MEDS: Heparin 1,000 UNIT/ML 10 ml (10,000 UNITS) CATHLAB/DIALYSIS DIALYSIS PRN (10:20)
[2022-07-06] MEDS: DULoxetine DR 30 mg CAP PO SCH (10:33)
[2022-07-06] MEDS: [UNRECOGNIZED DRUG - OTHER] PO SCH (10:36)
[2022-07-06] MEDS: ISAVUCONAZONIUM SULFATE 186 MG PO SCH (10:37)
[2022-07-06] MEDS: PTO: Ruxolitinib (NF) 5 MG TABLET PO SCH ×2 (10:37→20:40)
[2022-07-06] MEDS: Pantoprazole VIAL 40 MG VIAL IV SCH ×2 (10:44→20:42)
[2022-07-06] MEDS ORDERED: Benzocaine (plain) Lozenge 15 MG PO PRN (12:55)
[2022-07-07] MEDS: Levothyroxine 100 MCG/5 ML VIAL IV SCH (05:37)
[2022-07-07 06:00] LABS: ABS Lymphocytes 0.3 10^3/ul (1.0-4.8); ABS Monocytes 0.2 10^3/ul (0-0.8); ABS Neutrophils 3.9 10^3/ul (1.5-7.7); Eosinophil % 0.2 %; Hematocrit 27 % (42-52); Hemoglobin 9.3 g/dL (14.0-18.0); Mean Corpuscular HGB Conc 34 g/dL (31-36); Mean Corpuscular Hemoglobin 30 pg (27-31); Mean Corpuscular Volume 88 fL (80-94); Mean Platelet Volume 8.7 fL (7.4-10.4); Platelet Count 47 10^3/uL (150-450); Red Blood Count 3.11 10^6 /uL (4.18-5.48); Red Cell Distribution Width 17 % (10-15); White Blood Count 4.4 10^3/uL (3.5-10.8)
[2022-07-07 07:02] LABS: Calcium 8.2 mg/dL (8.6-10.3); Creatinine, Serum 1.66 mg/dL (0.67-1.17); Magnesium 1.7 mg/dL (1.9-2.7); Potassium 3.8 mmol/L (3.5-5.0)
[2022-07-07] MEDS: Albuterol/Ipratropium NEB.SOL (2.5/0.5 MG) 3 ML NEB.SOLN INH SCH ×2 (07:08→19:27)
[2022-07-07] MEDS: Budesonide NEB 0.5 MG/2 ML NEB.SOLN INH SCH ×2 (07:09→19:27)
[2022-07-07] MEDS ORDERED: Magnesium Sulfate 2 gm BAG 2 GM/50 ML BAG IVPB ONE (08:28)
[2022-07-07] MEDS: Pantoprazole VIAL 40 MG VIAL IV SCH ×2 (09:42→21:16)
[2022-07-07] MEDS: PTO: Ruxolitinib (NF) 5 MG TABLET PO SCH ×2 (09:43→21:17)
[2022-07-07] MEDS: [UNRECOGNIZED DRUG - OTHER] PO SCH (09:43)
[2022-07-07] MEDS: DULoxetine DR 30 mg CAP PO SCH (09:43)
[2022-07-07] MEDS: ISAVUCONAZONIUM SULFATE 186 MG PO SCH (09:44)
[2022-07-07] MEDS: Lidocaine PATCH 5% PATCH TRANSDERM SCH (11:39)
[2022-07-07 19:55] LABS: HIT ELISA < 0.050 OD (<0.400); Heparin PF4 Antibody Interp Negative (Negative)
[2022-07-08 05:05] LABS: ABS Lymphocytes 0.2 10^3/ul (1.0-4.8); ABS Monocytes 0.2 10^3/ul (0-0.8); ABS Neutrophils 3.5 10^3/ul (1.5-7.7); Eosinophil % 0.2 %; Hematocrit 27 % (42-52); Hemoglobin 8.9 g/dL (14.0-18.0); Lymphocyte % 4.8 %; Mean Corpuscular HGB Conc 34 g/dL (31-36); Mean Corpuscular Hemoglobin 29 pg (27-31); Mean Corpuscular Volume 88 fL (80-94); Mean Platelet Volume 8.9 fL (7.4-10.4); Nucleated Red Blood Cells % 0.1; Platelet Count 36 10^3/uL (150-450); Red Blood Count 3.04 10^6 /uL (4.18-5.48); Red Cell Distribution Width 17 % (10-15); White Blood Count 3.9 10^3/uL (3.5-10.8)
[2022-07-08 05:14] LABS: Creatinine, Serum 1.84 mg/dL (0.67-1.17); Potassium 3.4 mmol/L (3.5-5.0)
[2022-07-08] MEDS: Levothyroxine 100 MCG/5 ML VIAL IV SCH (05:35)
[2022-07-08] MEDS: Budesonide NEB 0.5 MG/2 ML NEB.SOLN INH SCH ×2 (06:53→20:54)
[2022-07-08] MEDS: Albuterol/Ipratropium NEB.SOL (2.5/0.5 MG) 3 ML NEB.SOLN INH SCH ×2 (06:53→20:53)
[2022-07-08] MEDS: DULoxetine DR 30 mg CAP PO SCH (08:01)
[2022-07-08] MEDS: Pantoprazole VIAL 40 MG VIAL IV SCH ×2 (08:01→20:22)
[2022-07-08] MEDS: Lidocaine PATCH 5% PATCH TRANSDERM SCH (08:03)
[2022-07-08] MEDS: ISAVUCONAZONIUM SULFATE 186 MG PO SCH (08:25)
[2022-07-08] MEDS: [UNRECOGNIZED DRUG - OTHER] PO SCH (08:25)
[2022-07-08] MEDS: PTO: Ruxolitinib (NF) 5 MG TABLET PO SCH ×2 (08:25→20:23)
[2022-07-09] MEDS: Levothyroxine 100 MCG/5 ML VIAL IV SCH (05:11)
[2022-07-09 05:56] LABS: Calcium 7.9 mg/dL (8.6-10.3); Creatinine, Serum 1.76 mg/dL (0.67-1.17); Potassium 3.4 mmol/L (3.5-5.0); eGFR CKD-EPI 40.1 (>60)
[2022-07-09] MEDS: Albuterol/Ipratropium NEB.SOL (2.5/0.5 MG) 3 ML NEB.SOLN INH SCH ×2 (07:29→19:28)
[2022-07-09] MEDS: Budesonide NEB 0.5 MG/2 ML NEB.SOLN INH SCH ×2 (07:29→19:29)
[2022-07-09] MEDS: Lidocaine PATCH 5% PATCH TRANSDERM SCH (08:10)
[2022-07-09] MEDS: Pantoprazole VIAL 40 MG VIAL IV SCH ×2 (08:11→20:48)
[2022-07-09] MEDS: DULoxetine DR 30 mg CAP PO SCH (08:12)
[2022-07-09] MEDS: [UNRECOGNIZED DRUG - OTHER] PO SCH (08:13)
[2022-07-09] MEDS: PTO: Ruxolitinib (NF) 5 MG TABLET PO SCH ×2 (08:13→20:49)
[2022-07-09] MEDS: ISAVUCONAZONIUM SULFATE 186 MG PO SCH (08:14)
[2022-07-09 09:58] LABS: ABS Lymphocytes 0.2 10^3/ul (1.0-4.8); ABS Monocytes 0.1 10^3/ul (0-0.8); ABS Neutrophils 3.3 10^3/ul (1.5-7.7); Eosinophil % 0.3 %; Hematocrit 29 % (42-52); Hemoglobin 9.6 g/dL (14.0-18.0); Lymphocyte % 5.7 %; Mean Corpuscular HGB Conc 34 g/dL (31-36); Mean Corpuscular Hemoglobin 29 pg (27-31); Mean Corpuscular Volume 88 fL (80-94); Mean Platelet Volume 8.9 fL (7.4-10.4); Nucleated Red Blood Cells % 0.1; Platelet Count 33 10^3/uL (150-450); Red Blood Count 3.26 10^6 /uL (4.18-5.48); Red Cell Distribution Width 16 % (10-15); White Blood Count 3.6 10^3/uL (3.5-10.8)
[2022-07-09 17:19] LABS: Glucose Confirmatory 443 mg/dL (70-100)
[2022-07-09] MEDS: Insulin GLARGINE 100 un/ml 10 ml VIAL SUBCUT SCH (20:49)
[2022-07-10] MEDS: Levothyroxine 100 MCG/5 ML VIAL IV SCH (05:16)
[2022-07-10 05:50] LABS: Calcium 7.8 mg/dL (8.6-10.3); Creatinine, Serum 1.73 mg/dL (0.67-1.17); Potassium 3.5 mmol/L (3.5-5.0); eGFR CKD-EPI 40.9 (>60)
[2022-07-10] MEDS: Albuterol/Ipratropium NEB.SOL (2.5/0.5 MG) 3 ML NEB.SOLN INH SCH ×2 (07:28→19:31)
[2022-07-10] MEDS: Budesonide NEB 0.5 MG/2 ML NEB.SOLN INH SCH ×2 (07:29→19:32)
[2022-07-10] MEDS: Lidocaine PATCH 5% PATCH TRANSDERM SCH (08:59)
[2022-07-10] MEDS: PTO: Ruxolitinib (NF) 5 MG TABLET PO SCH ×2 (09:01→22:05)
[2022-07-10] MEDS: Pantoprazole VIAL 40 MG VIAL IV SCH ×2 (09:01→23:55)
[2022-07-10] MEDS: [UNRECOGNIZED DRUG - OTHER] PO SCH (09:01)
[2022-07-10] MEDS: ISAVUCONAZONIUM SULFATE 186 MG PO SCH (09:04)
[2022-07-10] MEDS: DULoxetine DR 30 mg CAP PO SCH (09:04)
[2022-07-10] MEDS: Dextran 70/Hypromellose Tears Eye Drops 15 ml BTL (for Artificials Tears) BOTH EYES PRN (16:32)
[2022-07-10 16:35] LABS: Glucose Confirmatory 421 mg/dL (70-100)
[2022-07-10] MEDS: Insulin GLARGINE 100 un/ml 10 ml VIAL SUBCUT SCH (21:47)
[2022-07-11 05:30] LABS: ABS Lymphocytes 0.4 10^3/ul (1.0-4.8); ABS Monocytes 0.2 10^3/ul (0-0.8); ABS Neutrophils 4.9 10^3/ul (1.5-7.7); Eosinophil % 0.2 %; Hematocrit 28 % (42-52); Hemoglobin 9.4 g/dL (14.0-18.0); Lymphocyte % 7.4 %; Mean Corpuscular HGB Conc 34 g/dL (31-36); Mean Corpuscular Hemoglobin 29 pg (27-31); Mean Corpuscular Volume 87 fL (80-94); Mean Platelet Volume 8.6 fL (7.4-10.4); Nucleated Red Blood Cells % 0.1; Platelet Count 52 10^3/uL (150-450); Red Blood Count 3.22 10^6 /uL (4.18-5.48); Red Cell Distribution Width 17 % (10-15); White Blood Count 5.5 10^3/uL (3.5-10.8)
[2022-07-11 06:00] LABS: Calcium 7.9 mg/dL (8.6-10.3); Creatinine, Serum 1.73 mg/dL (0.67-1.17); Magnesium 1.9 mg/dL (1.9-2.7); Potassium 3.4 mmol/L (3.5-5.0); eGFR CKD-EPI 40.9 (>60)
[2022-07-11] MEDS ORDERED: Potassium Chlor 20 meq TAB.ER PO ONE (07:16)
[2022-07-11] MEDS: Budesonide NEB 0.5 MG/2 ML NEB.SOLN INH SCH ×2 (07:23→18:56)
[2022-07-11] MEDS: Albuterol/Ipratropium NEB.SOL (2.5/0.5 MG) 3 ML NEB.SOLN INH SCH ×2 (07:23→18:57)
[2022-07-11] MEDS: Pantoprazole VIAL 40 MG VIAL IV SCH ×2 (08:08→21:55)
[2022-07-11] MEDS: Dextran 70/Hypromellose Tears Eye Drops 15 ml BTL (for Artificials Tears) BOTH EYES PRN (08:09)
[2022-07-11] MEDS: Lidocaine PATCH 5% PATCH TRANSDERM SCH (08:09)
[2022-07-11] MEDS: DULoxetine DR 30 mg CAP PO SCH (08:10)
[2022-07-11] MEDS: [UNRECOGNIZED DRUG - OTHER] PO SCH (08:12)
[2022-07-11] MEDS: PTO: Ruxolitinib (NF) 5 MG TABLET PO SCH ×2 (08:12→22:01)
[2022-07-11] MEDS: ISAVUCONAZONIUM SULFATE 186 MG PO SCH (08:13)
[2022-07-11] MEDS ORDERED: Senna TAB 8.6 mg TAB PO PRN (08:25)
[2022-07-11] MEDS ORDERED: Polyethylene Glycol 3350 17 GM PACKET PO PRN (08:25)
[2022-07-11 20:30] LABS: Platelet Count 67 10^3/uL (150-450)
[2022-07-11] MEDS: Insulin GLARGINE 100 un/ml 10 ml VIAL SUBCUT SCH (21:53)
[2022-07-12 05:10] LABS: ABS Lymphocytes 0.5 10^3/ul (1.0-4.8); ABS Monocytes 0.3 10^3/ul (0-0.8); ABS Neutrophils 4.7 10^3/ul (1.5-7.7); Eosinophil % 0.3 %; Hematocrit 27 % (42-52); Hemoglobin 9.2 g/dL (14.0-18.0); Lymphocyte % 9.3 %; Mean Corpuscular HGB Conc 34 g/dL (31-36); Mean Corpuscular Hemoglobin 29 pg (27-31); Mean Corpuscular Volume 87 fL (80-94); Mean Platelet Volume 7.8 fL (7.4-10.4); Platelet Count 60 10^3/uL (150-450); Red Blood Count 3.13 10^6 /uL (4.18-5.48); Red Cell Distribution Width 16 % (10-15); White Blood Count 5.5 10^3/uL (3.5-10.8)
[2022-07-12 05:14] LABS: INR 1.11 (0.88-1.18)
[2022-07-12 05:43] LABS: Albumin 4.1 g/dL (3.2-5.2); Albumin/Globulin Ratio 2.6 (1-3); Creatinine, Serum 1.71 mg/dL (0.67-1.17); Globulin 1.6 g/dL (2-4); Magnesium 1.9 mg/dL (1.9-2.7); Potassium 3.4 mmol/L (3.5-5.0); Total Bilirubin 0.6 mg/dL (0.2-1.0); Total Protein 5.7 g/dL (6.4-8.9); eGFR CKD-EPI 41.5 (>60)
[2022-07-12] MEDS: Albuterol/Ipratropium NEB.SOL (2.5/0.5 MG) 3 ML NEB.SOLN INH SCH ×2 (07:11→19:12)
[2022-07-12] MEDS: Budesonide NEB 0.5 MG/2 ML NEB.SOLN INH SCH ×2 (07:11→19:12)
[2022-07-12] MEDS: Lidocaine PATCH 5% PATCH TRANSDERM SCH (07:45)
[2022-07-12] MEDS: KCL 20 MEQ/100 ML IVPREMIX 20 MEQ/100 ML BAG IV SCH ×2 (07:46→09:59)
[2022-07-12] MEDS: Pantoprazole VIAL 40 MG VIAL IV SCH ×2 (09:25→20:48)
[2022-07-12] MEDS: ISAVUCONAZONIUM SULFATE 186 MG PO SCH (09:25)
[2022-07-12] MEDS: [UNRECOGNIZED DRUG - OTHER] PO SCH (09:26)
[2022-07-12] MEDS: PTO: Ruxolitinib (NF) 5 MG TABLET PO SCH ×2 (09:27→20:48)
[2022-07-12] MEDS: DULoxetine DR 30 mg CAP PO SCH (09:28)
[2022-07-12] MEDS ORDERED: Heparin 2 UNITS/ML 1000 mls 1,000 ML IV ONE (14:01)
[2022-07-12] MEDS: Insulin GLARGINE 100 un/ml 10 ml VIAL SUBCUT SCH (20:51)
[2022-07-13] MEDS ORDERED: HYDROmorphone 0.5 MG/0.5 ML SYRINGE IV SLOW PU ONE (02:09)
[2022-07-13 06:37] LABS: Albumin 3.9 g/dL (3.2-5.2); Albumin/Globulin Ratio 2.2 (1-3); Calcium 7.9 mg/dL (8.6-10.3); Creatinine, Serum 1.82 mg/dL (0.67-1.17); Globulin 1.8 g/dL (2-4); Potassium 3.8 mmol/L (3.5-5.0); Total Bilirubin 0.5 mg/dL (0.2-1.0); Total Protein 5.7 g/dL (6.4-8.9); eGFR CKD-EPI 38.5 (>60)
[2022-07-13 06:46] LABS: ABS Lymphocytes 0.5 10^3/ul (1.0-4.8); ABS Monocytes 0.3 10^3/ul (0-0.8); ABS Neutrophils 5.5 10^3/ul (1.5-7.7); Eosinophil % 0.3 %; Hematocrit 28 % (42-52); Hemoglobin 9.6 g/dL (14.0-18.0); Lymphocyte % 8.3 %; Mean Corpuscular HGB Conc 34 g/dL (31-36); Mean Corpuscular Hemoglobin 30 pg (27-31); Mean Corpuscular Volume 88 fL (80-94); Mean Platelet Volume 8.8 fL (7.4-10.4); Nucleated Red Blood Cells % 0.1; Platelet Count 75 10^3/uL (150-450); Red Blood Count 3.22 10^6 /uL (4.18-5.48); Red Cell Distribution Width 16 % (10-15); White Blood Count 6.3 10^3/uL (3.5-10.8)
[2022-07-13] MEDS: Albuterol/Ipratropium NEB.SOL (2.5/0.5 MG) 3 ML NEB.SOLN INH SCH ×2 (06:49→19:00)
[2022-07-13] MEDS: Budesonide NEB 0.5 MG/2 ML NEB.SOLN INH SCH ×2 (06:50→19:13)
[2022-07-13] MEDS: Pantoprazole VIAL 40 MG VIAL IV SCH ×2 (09:27→21:15)
[2022-07-13] MEDS: Lidocaine PATCH 5% PATCH TRANSDERM SCH (09:27)
[2022-07-13] MEDS: Polyethylene Glycol 3350 17 GM PACKET PO SCH (09:27)
[2022-07-13] MEDS: DULoxetine DR 30 mg CAP PO SCH (09:28)
[2022-07-13] MEDS: [UNRECOGNIZED DRUG - OTHER] PO SCH (09:29)
[2022-07-13] MEDS: PTO: Ruxolitinib (NF) 5 MG TABLET PO SCH ×2 (09:29→21:30)
[2022-07-13] MEDS: ISAVUCONAZONIUM SULFATE 186 MG PO SCH (09:30)
[2022-07-13] MEDS ORDERED: Ondansetron 4 mg VIAL 2 MG/ML 2 ml VIAL IV PRN (11:04)
[2022-07-13] MEDS ORDERED: Senna TAB 8.6 mg TAB PO SCH (21:00)
[2022-07-13] MEDS: Insulin GLARGINE 100 un/ml 10 ml VIAL SUBCUT SCH (21:15)
[2022-07-14 05:58] LABS: ABS Lymphocytes 0.4 10^3/ul (1.0-4.8); ABS Monocytes 0.1 10^3/ul (0-0.8); ABS Neutrophils 3.9 10^3/ul (1.5-7.7); Eosinophil % 0.2 %; Hematocrit 27 % (42-52); Hemoglobin 8.7 g/dL (14.0-18.0); Mean Corpuscular HGB Conc 33 g/dL (31-36); Mean Corpuscular Hemoglobin 29 pg (27-31); Mean Corpuscular Volume 88 fL (80-94); Mean Platelet Volume 8.7 fL (7.4-10.4); Nucleated Red Blood Cells % 0.2; Platelet Count 72 10^3/uL (150-450); Red Blood Count 3.01 10^6 /uL (4.18-5.48); Red Cell Distribution Width 16 % (10-15); White Blood Count 4.4 10^3/uL (3.5-10.8)
[2022-07-14 06:09] LABS: Calcium 8.2 mg/dL (8.6-10.3); Creatinine, Serum 1.9 mg/dL (0.67-1.17); Phosphorus 4.5 mg/dL (2.5-5.0); Potassium 3.7 mmol/L (3.5-5.0); eGFR CKD-EPI 36.6 (>60)
[2022-07-14] MEDS: Budesonide NEB 0.5 MG/2 ML NEB.SOLN INH SCH (06:53)
[2022-07-14] MEDS: Albuterol/Ipratropium NEB.SOL (2.5/0.5 MG) 3 ML NEB.SOLN INH SCH (06:53)
[2022-07-14] MEDS: ISAVUCONAZONIUM SULFATE 186 MG PO SCH (09:19)
[2022-07-14] MEDS: [UNRECOGNIZED DRUG - OTHER] PO SCH (09:20)
[2022-07-14] MEDS: PTO: Ruxolitinib (NF) 5 MG TABLET PO SCH (09:20)
[2022-07-14] MEDS: Lidocaine PATCH 5% PATCH TRANSDERM SCH (09:20)
[2022-07-14] MEDS: Pantoprazole VIAL 40 MG VIAL IV SCH (09:20)
[2022-07-14] MEDS: Polyethylene Glycol 3350 17 GM PACKET PO SCH (09:21)
[2022-07-14] MEDS: DULoxetine DR 30 mg CAP PO SCH (09:23)
[2022-07-14 13:39] VITALS: BP 154/78
[2022-07-14 13:48] LABS: Calcium 8.2 mg/dL (8.6-10.3); Potassium 3.9 mmol/L (3.5-5.0)
[2022-07-14 13:54] LABS: Creatinine, Serum 1.8 mg/dL (0.67-1.17)
== END 2022-07-14 17:33 | disposition home or self-care (01) | DRG 371 ==
LOC: ED 11:18 → SUATTDRO 19:57 → EDHOLD 19:57 → MEDTELE 21:50 → MED 06-26 12:51 → ICU 07-01 15:15 → MED 07-06 11:09
PROVIDERS: ADMIT Physician Assistant; ATTEND Internal Medicine

== ENCOUNTER 2022-07-25 11:02 | Inpatient (IN) ==
[2022-07-25 12:42] LABS: Hematocrit 27 % (42-52); Hemoglobin 9.1 g/dL (14.0-18.0); Mean Corpuscular HGB Conc 33 g/dL (31-36); Mean Corpuscular Hemoglobin 30 pg (27-31); Mean Corpuscular Volume 89 fL (80-94); Mean Platelet Volume 7.9 fL (7.4-10.4); Platelet Count 153 10^3/uL (150-450); Red Blood Count 3.07 10^6 /uL (4.18-5.48); Red Cell Distribution Width 18 % (10-15); White Blood Count 5.4 10^3/uL (3.5-10.8)
[2022-07-25 13:02] LABS: INR 1.05 (0.88-1.18)
[2022-07-25 13:09] LABS: Albumin 4.3 g/dL (3.2-5.2); Albumin/Globulin Ratio 2.5 (1-3); C Reactive Protein 61.46 mg/L (<8.01); Calcium 8.8 mg/dL (8.6-10.3); Creatinine, Serum 1.33 mg/dL (0.67-1.17); Globulin 1.7 g/dL (2-4); Magnesium 2.3 mg/dL (1.9-2.7); Phosphorus 2.4 mg/dL (2.5-5.0); Potassium 3.8 mmol/L (3.5-5.0); Total Bilirubin 0.6 mg/dL (0.2-1.0); eGFR CKD-EPI 56.1 (>60)
[2022-07-25 13:39] LABS: Urine Appearance Cloudy; Urine Bilirubin Negative (Negative); Urine Blood 1+ (Negative); Urine Color Yellow; Urine Glucose 1+(50 mg/dL) (Negative); Urine Ketones Negative (Negative); Urine Nitrite Negative (Negative); Urine Protein 3+(>=500 mg/dL) (Negative); Urine Specific Gravity 1.014 (1.002-1.030); Urine Urobilinogen Negative (Negative)
[2022-07-25 13:50] LABS: ABS Lymphocytes 0.6 10^3/ul (1.0-4.8); ABS Monocytes 0.4 10^3/ul (0-0.8); ABS Neutrophils 4.2 10^3/ul (1.5-7.7); Anisocytosis 2+; Eosinophil % 0.8 %; Nucleated Red Blood Cells % 0.2; Polychromasia 1+
[2022-07-25 13:55] LABS: Urine Bacteria Absent (Absent); Urine Red Blood Cell 2+(6-10/hpf) (Absent); Urine Squamous Epithelial Cell Present (Absent); Urine White Blood Cell Trace(0-5/hpf) (Absent)
[2022-07-25 14:17] LABS: High Sensitivity Troponin 1 Hr 183 pg/mL (<20)
[2022-07-25] MEDS ORDERED: NS 0.9% 1000 ml BAG 1,000 ML IV ONE (18:55)
[2022-07-25] MEDS ORDERED: Ondansetron 4 mg VIAL 2 MG/ML 2 ml VIAL IV PRN (19:25)
[2022-07-25] MEDS ORDERED: Senna TAB 8.6 mg TAB PO PRN (19:52)
[2022-07-25 20:15] LABS: PCO2 Arterial 31 mmHg (35-45); PO2 Arterial 62 mmHg (80-100)
[2022-07-25] MEDS ORDERED: Fluticasone NASAL SPRAY 50MCG 16 gm SPRAY BTL INTRANASAL PRN (21:52)
[2022-07-25] MEDS ORDERED: Dextrose 50% Syringe 50 ml 25 GM/50 ML SYRINGE IV PUSH PRN (22:29)
[2022-07-26] MEDS: NS 0.9% 1000 ml BAG 1,000 ML IV SCH ×2 (05:34→18:17)
[2022-07-26 06:26] LABS: Hematocrit 23 % (42-52); Mean Corpuscular HGB Conc 35 g/dL (31-36); Mean Corpuscular Hemoglobin 31 pg (27-31); Mean Corpuscular Volume 89 fL (80-94); Red Cell Distribution Width 19 % (10-15); White Blood Count 5.8 10^3/uL (3.5-10.8)
[2022-07-26 06:44] LABS: ABS Lymphocytes 0.3 10^3/ul (1.0-4.8); ABS Monocytes 0.4 10^3/ul (0-0.8); Eosinophil % 0.4 %; Lymphocyte % 4.9 %; Mean Platelet Volume 7.9 fL (7.4-10.4); Nucleated Red Blood Cells % 0.2; Platelet Count 88 10^3/uL (150-450)
[2022-07-26 06:48] LABS: Albumin 3.2 g/dL (3.2-5.2); Albumin/Globulin Ratio 2.1 (1-3); Creatinine, Serum 1.38 mg/dL (0.67-1.17); Globulin 1.5 g/dL (2-4); Potassium 3.4 mmol/L (3.5-5.0); Total Bilirubin 0.8 mg/dL (0.2-1.0); Total Protein 4.7 g/dL (6.4-8.9); eGFR CKD-EPI 53.7 (>60)
[2022-07-26] MEDS: Budesonide NEB 0.5 MG/2 ML NEB.SOLN INH SCH ×2 (07:24→18:22)
[2022-07-26] MEDS: Albuterol/Ipratropium NEB.SOL (2.5/0.5 MG) 3 ML NEB.SOLN INH SCH ×2 (07:51→18:22)
[2022-07-26] MEDS: Lidocaine PATCH 5% PATCH TRANSDERM SCH (09:39)
[2022-07-26] MEDS: DULoxetine DR 30 mg CAP PO SCH (09:40)
[2022-07-26] MEDS: Isosorbide Mononit ER 30mg TAB PO SCH (09:40)
[2022-07-26] MEDS: [UNRECOGNIZED DRUG - OTHER] PO SCH (10:35)
[2022-07-26] MEDS: PTO: Ruxolitinib (NF) 5 MG TABLET PO SCH ×2 (11:43→20:38)
[2022-07-26] MEDS: ISAVUCONAZONIUM SULFATE 186 MG PO SCH (11:43)
[2022-07-26] MEDS: cefTRIAXone 2 gm/50 mL D5W 2 GM/50 ML BAG IV SCH (11:50)
[2022-07-27 06:40] LABS: ABS Lymphocytes 0.2 10^3/ul (1.0-4.8); ABS Monocytes 0.1 10^3/ul (0-0.8); ABS Neutrophils 3.6 10^3/ul (1.5-7.7); Eosinophil % 0.1 %; Hematocrit 22 % (42-52); Hemoglobin 7.7 g/dL (14.0-18.0); Lymphocyte % 4.8 %; Mean Corpuscular HGB Conc 36 g/dL (31-36); Mean Corpuscular Hemoglobin 32 pg (27-31); Mean Corpuscular Volume 89 fL (80-94); Nucleated Red Blood Cells % 0.1; Platelet Count 80 10^3/uL (150-450); Red Blood Count 2.43 10^6 /uL (4.18-5.48); Red Cell Distribution Width 19 % (10-15)
[2022-07-27 07:02] LABS: Calcium 7.9 mg/dL (8.6-10.3); Creatinine, Serum 1.99 mg/dL (0.67-1.17); Potassium 4.5 mmol/L (3.5-5.0); eGFR CKD-EPI 34.6 (>60)
[2022-07-27] MEDS: Albuterol/Ipratropium NEB.SOL (2.5/0.5 MG) 3 ML NEB.SOLN INH SCH ×2 (07:06→23:33)
[2022-07-27] MEDS: Budesonide NEB 0.5 MG/2 ML NEB.SOLN INH SCH ×2 (07:06→23:32)
[2022-07-27] MEDS: ISAVUCONAZONIUM SULFATE 186 MG PO SCH (09:40)
[2022-07-27] MEDS: PTO: Ruxolitinib (NF) 5 MG TABLET PO SCH ×2 (09:40→22:20)
[2022-07-27] MEDS: Isosorbide Mononit ER 30mg TAB PO SCH (09:43)
[2022-07-27] MEDS: DULoxetine DR 30 mg CAP PO SCH (09:43)
[2022-07-27] MEDS: cefTRIAXone 2 gm/50 mL D5W 2 GM/50 ML BAG IV SCH (10:32)
[2022-07-27] MEDS: Lidocaine PATCH 5% PATCH TRANSDERM SCH (10:57)
[2022-07-27] MEDS: [UNRECOGNIZED DRUG - OTHER] PO SCH (17:55)
[2022-07-27 18:06] LABS: Glucose Confirmatory 416 mg/dL (70-100)
[2022-07-28] MEDS: Carboxymethylcellulos 1% OPTH 1 AMP BOTH EYES SCH ×2 (01:31→09:55)
[2022-07-28 06:50] LABS: Calcium 7.8 mg/dL (8.6-10.3); Creatinine, Serum 2.13 mg/dL (0.67-1.17); Potassium 4.6 mmol/L (3.5-5.0); eGFR CKD-EPI 31.9 (>60)
[2022-07-28] MEDS: Albuterol/Ipratropium NEB.SOL (2.5/0.5 MG) 3 ML NEB.SOLN INH SCH ×2 (07:02→19:52)
[2022-07-28] MEDS: Budesonide NEB 0.5 MG/2 ML NEB.SOLN INH SCH ×2 (07:03→19:52)
[2022-07-28 07:04] LABS: ABS Lymphocytes 0.2 10^3/ul (1.0-4.8); ABS Monocytes 0.1 10^3/ul (0-0.8); ABS Neutrophils 2.3 10^3/ul (1.5-7.7); Eosinophil % 0.1 %; Hematocrit 17 % (42-52); Hemoglobin 5.8 g/dL (14.0-18.0); Lymphocyte % 8.5 %; Mean Corpuscular HGB Conc 35 g/dL (31-36); Mean Corpuscular Hemoglobin 31 pg (27-31); Mean Corpuscular Volume 88 fL (80-94); Nucleated Red Blood Cells % 0.2; Red Blood Count 1.91 10^6 /uL (4.18-5.48); Red Cell Distribution Width 18 % (10-15); White Blood Count 2.7 10^3/uL (3.5-10.8)
[2022-07-28 07:48] LABS: Mean Platelet Volume 7.5 fL (7.4-10.4); Platelet Count 54 10^3/uL (150-450)
[2022-07-28] MEDS: Isosorbide Mononit ER 30mg TAB PO SCH (09:45)
[2022-07-28] MEDS: DULoxetine DR 30 mg CAP PO SCH (09:46)
[2022-07-28] MEDS: Lidocaine PATCH 5% PATCH TRANSDERM SCH (09:50)
[2022-07-28] MEDS: ISAVUCONAZONIUM SULFATE 186 MG PO SCH (09:54)
[2022-07-28] MEDS: [UNRECOGNIZED DRUG - OTHER] PO SCH (09:55)
[2022-07-28] MEDS: PTO: Ruxolitinib (NF) 5 MG TABLET PO SCH ×2 (10:01→22:14)
[2022-07-28] MEDS: cefTRIAXone 2 gm/50 mL D5W 2 GM/50 ML BAG IV SCH (11:30)
[2022-07-28 16:57] LABS: Hematocrit 23 % (42-52); Hemoglobin 7.5 g/dL (14.0-18.0)
[2022-07-28] MEDS ORDERED: Furosemide 20 mg/2 ml IV VIAL IV SLOW PU ONE (17:46)
[2022-07-28 22:40] LABS: Hematocrit 23 % (42-52); Hemoglobin 7.5 g/dL (14.0-18.0)
[2022-07-29 05:41] LABS: ABS Lymphocytes 0.3 10^3/ul (1.0-4.8); ABS Monocytes 0.2 10^3/ul (0-0.8); ABS Neutrophils 2.7 10^3/ul (1.5-7.7); Eosinophil % 0.2 %; Hematocrit 21 % (42-52); Hemoglobin 7.2 g/dL (14.0-18.0); Lymphocyte % 8.2 %; Mean Corpuscular HGB Conc 34 g/dL (31-36); Mean Corpuscular Hemoglobin 31 pg (27-31); Mean Corpuscular Volume 91 fL (80-94); Mean Platelet Volume 7.9 fL (7.4-10.4); Platelet Count 56 10^3/uL (150-450); Red Cell Distribution Width 18 % (10-15); White Blood Count 3.3 10^3/uL (3.5-10.8)
[2022-07-29 06:00] LABS: Calcium 7.9 mg/dL (8.6-10.3); Creatinine, Serum 1.53 mg/dL (0.67-1.17); Potassium 4.2 mmol/L (3.5-5.0); eGFR CKD-EPI 47.4 (>60)
[2022-07-29] MEDS: Budesonide NEB 0.5 MG/2 ML NEB.SOLN INH SCH ×2 (06:59→19:59)
[2022-07-29] MEDS: Albuterol/Ipratropium NEB.SOL (2.5/0.5 MG) 3 ML NEB.SOLN INH SCH ×2 (06:59→19:59)
[2022-07-29] MEDS: Isosorbide Mononit ER 30mg TAB PO SCH (08:48)
[2022-07-29] MEDS: DULoxetine DR 30 mg CAP PO SCH (08:48)
[2022-07-29] MEDS: [UNRECOGNIZED DRUG - OTHER] PO SCH (08:56)
[2022-07-29] MEDS: PTO: Ruxolitinib (NF) 5 MG TABLET PO SCH ×2 (08:56→21:04)
[2022-07-29] MEDS: Carboxymethylcellulos 1% OPTH 1 AMP BOTH EYES SCH (08:59)
[2022-07-29] MEDS: Lidocaine PATCH 5% PATCH TRANSDERM SCH (09:08)
[2022-07-29] MEDS: ISAVUCONAZONIUM SULFATE 186 MG PO SCH (09:10)
[2022-07-29] MEDS: cefTRIAXone 2 gm/50 mL D5W 2 GM/50 ML BAG IV SCH (11:18)
[2022-07-30 06:11] LABS: Hematocrit 24 % (42-52); Hemoglobin 8.2 g/dL (14.0-18.0); Mean Corpuscular HGB Conc 34 g/dL (31-36); Mean Corpuscular Hemoglobin 31 pg (27-31); Mean Corpuscular Volume 91 fL (80-94); Mean Platelet Volume 7.4 fL (7.4-10.4); Platelet Count 61 10^3/uL (150-450); Red Blood Count 2.64 10^6 /uL (4.18-5.48); Red Cell Distribution Width 18 % (10-15); White Blood Count 3.8 10^3/uL (3.5-10.8)
[2022-07-30 06:25] LABS: Creatinine, Serum 1.27 mg/dL (0.67-1.17); Potassium 3.9 mmol/L (3.5-5.0); eGFR CKD-EPI 59.3 (>60)
[2022-07-30] MEDS: Budesonide NEB 0.5 MG/2 ML NEB.SOLN INH SCH (06:40)
[2022-07-30] MEDS: Albuterol/Ipratropium NEB.SOL (2.5/0.5 MG) 3 ML NEB.SOLN INH SCH (06:40)
[2022-07-30 06:42] LABS: ABS Lymphocytes 0.4 10^3/ul (1.0-4.8); ABS Monocytes 0.3 10^3/ul (0-0.8); ABS Neutrophils 3.1 10^3/ul (1.5-7.7); Eosinophil % 0.3 %; Lymphocyte % 9.6 %; Nucleated Red Blood Cells % 0.1
[2022-07-30] MEDS: Lidocaine PATCH 5% PATCH TRANSDERM SCH (09:31)
[2022-07-30] MEDS: DULoxetine DR 30 mg CAP PO SCH (09:32)
[2022-07-30] MEDS: Isosorbide Mononit ER 30mg TAB PO SCH (09:32)
[2022-07-30] MEDS: PTO: Ruxolitinib (NF) 5 MG TABLET PO SCH (09:34)
[2022-07-30] MEDS: [UNRECOGNIZED DRUG - OTHER] PO SCH (09:35)
[2022-07-30] MEDS: ISAVUCONAZONIUM SULFATE 186 MG PO SCH (09:35)
[2022-07-30] MEDS: Carboxymethylcellulos 1% OPTH 1 AMP BOTH EYES SCH (09:45)
[2022-07-30] MEDS: cefTRIAXone 2 gm/50 mL D5W 2 GM/50 ML BAG IV SCH (10:28)
[2022-07-30 13:52] VITALS: BP 135/83
== END 2022-07-30 14:55 | disposition home or self-care (01) | DRG 193 ==
LOC: ED 11:02 → EDHOLD 11:02 → MED 22:08
PROVIDERS: ADMIT Student in an Organized Health Care Education/Training Program; ATTEND Student in an Organized Health Care Education/Training Program